=== PATIENT | female | born 1965 | race Caucasian/White ===

== ENCOUNTER → 2017-08-27 | Outpatient (CLI) | payer OTHER ==
--- NOTE | 2017-08-28 11:42 | MM ---
Reason for exam: screening (asymptomatic). Last mammogram was performed 1 year ago. History: Patient is postmenopausal. Family history of breast cancer in cousin and breast cancer in sister at age 56. Took hormonal contraceptives for 3 years beginning at age 45. Physical Findings: A clinical breast exam by your physician is recommended on an annual basis and results should be correlated with mammographic findings. MG Screening Mammo w CAD Bilateral CC and MLO view(s) were taken. Prior study comparison: August 19, 2016, bilateral MG 3d screening mammo w/cad. August 17, 2015, bilateral MG screening mammo w CAD. The breast tissue is heterogeneously dense. This may lower the sensitivity of mammography. Finding: There is equal architectural distortion located 4 cm from the nipple in the anterior position of the right breast seen on CC view. New finding since August 19, 2016, may be summation. ASSESSMENT: Incomplete: need additional imaging evaluation, BI-RAD 0 RECOMMENDATION: Special view mammogram of the right breast. If lesion persists on supplemental views, image directed ultrasound is recommended. [facility] will attempt to contact patient to return for supplemental views and ultrasound if indicated.
== END | disposition home or self-care (01) ==
LOC: RADMAMWWP 08:23
PROVIDERS: ATTEND Obstetrics & Gynecology
DX: Z08 Encounter for follow-up examination after completed treatment for malignant neoplasm (principal); Z80.3 Family history of malignant neoplasm of breast

== ENCOUNTER → 2017-09-01 | Outpatient (CLI) | payer OTHER ==
--- NOTE | 2017-09-01 14:49 | MM ---
Reason for exam: additional evaluation requested from abnormal screening. Last mammogram was performed less than 1 month ago. History: Patient is postmenopausal. Family history of breast cancer in cousin and breast cancer in sister at age 56. Took hormonal contraceptives for 3 years beginning at age 45. Physical Findings: Nurse did not find any significant physical abnormalities on exam. MG Work Up Mamm w CAD RT Spot compression CC and LM view(s) were taken of the right breast. Prior study comparison: August 27, 2017, bilateral MG screening mammo w CAD. August 19, 2016, bilateral MG 3d screening mammo w/cad. The breast tissue is heterogeneously dense. This may lower the sensitivity of mammography. Finding: Architectural distortion in the right breast does not persist on additional views as true lesion. These results were verbally communicated with the patient and result sheet given to the patient on 09/01/17. ASSESSMENT: Negative, BI-RAD 1 RECOMMENDATION: Return to routine screening mammogram schedule for both breasts.
== END | disposition home or self-care (01) ==
LOC: RADMAMWWP 14:02
PROVIDERS: ATTEND Obstetrics & Gynecology
DX: R92.8 Other abnormal and inconclusive findings on diagnostic imaging of breast (principal); Z80.3 Family history of malignant neoplasm of breast

== ENCOUNTER → 2017-11-16 | Outpatient (CLI) | payer OTHER ==
--- NOTE | 2017-11-16 10:35 | CT ---
EXAMINATION TYPE: CT sinus wo con DATE OF EXAM: 11/16/2017 COMPARISON: NONE HISTORY: Chronic sinusitis. Left-sided Hearing loss with vision changes and fluid in ears for months per patient. CT DLP: 655 mGycm. Automated Exposure Control for Dose Reduction was Utilized. TECHNIQUE: CT scan of the sinuses is performed without contrast, axial images are obtained, coronal r eformatted images are also reviewed. FINDINGS: There is suspicious dependent opacification inferior posterior right maxillary sinus. There is eccentric mucosal thickening or small polyp inferior anterior left sphenoid sinus axial image 25. Remainder paranasal sinuses are clear without suspicious opacification or air-fluid level. The ostio meatal complex is patent bilaterally on the coronal images. Visualized portion of mastoid air cells show no abnormal opacification. The globes are intact bilate rally. IMPRESSION: Probable mild acute right maxillary sinusitis. Correlate clinically.
== END | disposition home or self-care (01) ==
LOC: RADCTMAIN 09:21
PROVIDERS: ATTEND Family Medicine
DX: J32.9 Chronic sinusitis, unspecified (principal)
CPT/HCPCS: 70486

== ENCOUNTER 2018-01-10 16:36 | Emergency (ER) | payer OTHER ==
[2018-01-10 17:10] LABS: Basophils % (A) 1 %; Eosinophils # (A) 0.3 k/uL (0-0.7); Eosinophils % (A) 4 %; HCT 41.1 % (34.0-46.0); HGB 14.2 gm/dL (11.4-16.0); Lymphocytes # (A) 1.4 k/uL (1.0-4.8); Lymphocytes % (A) 17 %; MCH 29.7 pg (25.0-35.0); MCHC 34.4 g/dL (31.0-37.0); MCV 86.2 fL (80.0-100.0); Mean Platelet Volume 7.3; Monocytes # (A) 0.4 k/uL (0-1.0); Monocytes % (A) 5 %; Neutrophils # (A) 5.8 k/uL (1.3-7.7); Neutrophils % (A) 72 %; Platelet Count 273 k/uL (150-450); RBC 4.77 m/uL (3.80-5.40); RDW 12.4 % (11.5-15.5)
[2018-01-10 17:14] LABS: INR 0.9 (<1.2); Partial Thromboplastin Time 23.1 sec (22.0-30.0); Prothrombin Time 9.5 sec (9.0-12.0)
--- NOTE | 2018-01-10 17:14 | XR ---
EXAMINATION: XR chest 2V DATE AND TIME: 01/10/2018 5:09 PM ORDERING PROVIDER: Jones Kirkland DO CLINICAL INDICATION: Chest Pain TECHNIQUE: PA and lateral COMPARISON: None. DESCRIPTION: The lungs are clear. The pleural spaces are negative. The cardiac silhouette is not enlarged. The mediastinal and pleural silhouettes are unremarkable. The skeletal structures are intact without focal findings. The soft tissues are unremarkable. IMPRESSION: NO ACUTE PROCESS.
[2018-01-10 17:19] LABS: Albumin 3.9 g/dL (3.5-5.0); D-Dimer 0.4 mg/L FEU (<0.60); Magnesium 1.9 mg/dL (1.6-2.3); Potassium 4.3 mmol/L (3.5-5.1); Total Bilirubin 0.2 mg/dL (0.2-1.3); Total Protein 6.6 g/dL (6.3-8.2)
--- NOTE | 2018-01-10 17:19 | ED ---
General Adult HPI - General Chief complaint: Chest Pain Stated complaint: CP Time Seen by Provider: 01/10/18 16:46 Source: patient, RN notes reviewed, old records reviewed Mode of arrival: ambulatory Limitations: no limitations - History of Present Illness Initial comments: This is a 52-year-old female to the ER today for evaluation regards to chest pain. Patient had chest pain starting today. Never had prior similar pain. Patient does have PCO left, high blood pressure, borderline cholesterol and history of smoking. Patient's chest pain is left-sided radiating to her jaw and down her arm. No travel history no sick contacts no history of blood clots - Related Data Home Medications Medication Instructions Recorded Confirmed Lisinopril [Prinivil] 5 mg PO DAILY 03/19/15 01/10/18 Cholecalciferol [Vitamin D3] 2,000 unit PO DAILY 09/15/16 01/10/18 Fluticasone Nasal [place] [Flonase 2 spr EA NOSTRIL DAILY PRN 01/10/18 01/10/18 Nasal [place]] [place]-3 Fatty Acids/Fish Oil [Fish 2 cap PO DAILY 01/10/18 01/10/18 Oil 1,000 mg Softgel] Allergies Allergy/AdvReac Type Severity Reaction Status Date / Time No Known Allergies Allergy Verified 01/10/18 17:13 Review of Systems ROS Statement: Those systems with pertinent positive or pertinent negative responses have been documented in the HPI. ROS Other: All systems not noted in ROS Statement are negative. Past Medical History Past Medical History: Osteoarthritis (OA) Additional Past Medical History / Comment(s): POLYCYSTIC KIDNEY DISEASE. CHRONIC ABDOMINAL & LOWER BACK PAIN DUE TO PKD., STATES LISINOPRIL IS FOR KIDNEY PROTECTION. History of Any Multi-Drug Resistant Organisms: None Reported Past Surgical History: Hernia Repair, Uterine Ablation Additional Past Surgical History / Comment(s): KIDNEY CYSTS DRAINED., GLASS REMOVED FROM FINGER. Past Anesthesia/Blood Transfusion Reactions: No Reported Reaction Past Psychological History: Anxiety Smoking Status: Former smoker Past Alcohol Use History: Rare Past Drug Use History: None Reported - Past Family History Father Family Medical History: Cancer Additional Family Medical History / Comment(s): COLON CANCER Sister(s) Family Medical History: Cancer Additional Family Medical History / Comment(s): BREAST CANCER, POLYPS Brother(s) Family Medical History: Cancer Additional Family Medical History / Comment(s): TESTICULAR CANCER General Exam Limitations: no limitations General appearance: alert, in no apparent distress Head exam: Present: atraumatic, normocephalic, normal inspection Eye exam: Present: normal appearance, PERRL, EOMI. Absent: scleral icterus, conjunctival injection, periorbital swelling ENT exam: Present: normal exam, mucous membranes moist Neck exam: Present: normal inspection. Absent: tenderness, meningismus, lymphadenopathy Respiratory exam: Present: normal lung sounds bilaterally. Absent: respiratory distress, wheezes, rales, rhonchi, stridor Cardiovascular Exam: Present: regular rate, normal rhythm, normal heart sounds. Absent: systolic murmur, diastolic murmur, rubs, gallop, clicks GI/Abdominal exam: Present: soft, normal bowel sounds. Absent: distended, tenderness, guarding, rebound, rigid Extremities exam: Present: normal inspection, full ROM, normal capillary refill. Absent: tenderness, pedal edema, joint swelling, calf tenderness Back exam: Present: normal inspection Neurological exam: Present: alert, oriented X3, CN II-XII intact Psychiatric exam: Present: normal affect, normal mood Skin exam: Present: warm, dry, intact, normal color. Absent: rash Course Vital Signs 01/10/18 01/10/18 01/10/18 16:38 18:55 19:38 Temperature 98.6 F Pulse Rate 80 62 78 Respiratory 18 16 18 Rate Blood Pressure 125/75 155/80 155/80 O2 Sat by Pulse 98 99 99 Oximetry EKG Findings - EKG Comments: EKG Findings:: EKG shows normal sinus rhythm rate of 71, NC 136, QRS 88, QTC 445 Medical Decision Making - Lab Data Result diagrams: 01/10/18 16:54 01/10/18 16:54 Lab Results 01/10/18 01/10/18 01/10/18 Range/Units 16:54 16:54 16:54 WBC 8.0 (3.8-10.6) k/uL RBC 4.77 (3.80-5.40) m/uL Hgb 14.2 (11.4-16.0) gm/dL Hct 41.1 (34.0-46.0) % MCV 86.2 (80.0-100.0) fL MCH 29.7 (25.0-35.0) pg MCHC 34.4 (31.0-37.0) g/dL RDW 12.4 (11.5-15.5) % Plt Count 273 (150-450) k/uL Neutrophils % 72 % Lymphocytes % 17 % Monocytes % 5 % Eosinophils % 4 % Basophils % 1 % Neutrophils # 5.8 (1.3-7.7) k/uL Lymphocytes # 1.4 (1.0-4.8) k/uL Monocytes # 0.4 (0-1.0) k/uL Eosinophils # 0.3 (0-0.7) k/uL Basophils # 0.0 (0-0.2) k/uL PT (9.0-12.0) sec INR (<1.2) APTT (22.0-30.0) sec D-Dimer (<0.60) mg/L FEU Sodium 144 (137-145) mmol/L Potassium 4.3 (3.5-5.1) mmol/L Chloride 109 H (98-107) mmol/L Carbon Dioxide 24 (22-30) mmol/L Anion Gap 11 mmol/L BUN 31 H (7-17) mg/dL Creatinine 0.96 (0.52-1.04) mg/dL Est GFR (CKD-EPI)AfAm 79 (>60 ml/min/1.73 sqM) Est GFR (CKD-EPI)NonAf 68 (>60 ml/min/1.73 sqM) Glucose 128 H (74-99) mg/dL Calcium 9.0 (8.4-10.2) mg/dL Magnesium 1.9 (1.6-2.3) mg/dL Total Bilirubin 0.2 (0.2-1.3) mg/dL AST 17 (14-36) U/L ALT 31 (9-52) U/L Alkaline Phosphatase 74 (38-126) U/L Total Creatine Kinase 74 (30-135) U/L CK-MB (CK-2) 0.6 (0.0-2.4) ng/mL CK-MB (CK-2) Rel Index 0.8 Troponin I <0.012 (0.000-0.034) ng/mL NT-Pro-B Natriuret Pep pg/mL Total Protein 6.6 (6.3-8.2) g/dL Albumin 3.9 (3.5-5.0) g/dL Lipase 325 H (23-300) U/L 01/10/18 01/10/18 Range/Units 16:54 16:54 WBC (3.8-10.6) k/uL RBC (3.80-5.40) m/uL Hgb (11.4-16.0) gm/dL Hct (34.0-46.0) % MCV (80.0-100.0) fL MCH (25.0-35.0) pg MCHC (31.0-37.0) g/dL RDW (11.5-15.5) % Plt Count (150-450) k/uL Neutrophils % % Lymphocytes % % Monocytes % % Eosinophils % % Basophils % % Neutrophils # (1.3-7.7) k/uL Lymphocytes # (1.0-4.8) k/uL Monocytes # (0-1.0) k/uL Eosinophils # (0-0.7) k/uL Basophils # (0-0.2) k/uL PT 9.5 (9.0-12.0) sec INR 0.9 (<1.2) APTT 23.1 (22.0-30.0) sec D-Dimer 0.40 (<0.60) mg/L FEU Sodium (137-145) mmol/L Potassium (3.5-5.1) mmol/L Chloride (98-107) mmol/L Carbon Dioxide (22-30) mmol/L Anion Gap mmol/L BUN (7-17) mg/dL Creatinine (0.52-1.04) mg/dL Est GFR (CKD-EPI)AfAm (>60 ml/min/1.73 sqM) Est GFR (CKD-EPI)NonAf (>60 ml/min/1.73 sqM) Glucose (74-99) mg/dL Calcium (8.4-10.2) mg/dL Magnesium (1.6-2.3) mg/dL Total Bilirubin (0.2-1.3) mg/dL AST (14-36) U/L ALT (9-52) U/L Alkaline Phosphatase (38-126) U/L Total Creatine Kinase (30-135) U/L CK-MB (CK-2) (0.0-2.4) ng/mL CK-MB (CK-2) Rel Index Troponin I (0.000-0.034) ng/mL NT-Pro-B Natriuret Pep 33 pg/mL Total Protein (6.3-8.2) g/dL Albumin (3.5-5.0) g/dL Lipase (23-300) U/L Disposition Clinical Impression: Chest pain Disposition: HOME SELF-CARE Condition: Good Instructions: Chest Pain (ED) Referrals: Braydon Warner DO [Primary Care Provider] - 1-2 days
[2018-01-10 17:25] LABS: Creatine Kinase 74 U/L (30-135)
[2018-01-10] MEDS ORDERED: RX INFO: IV CONTRAST WAS GIVEN 1 EACH MISC MISCELLANE PRN (17:37)
[2018-01-10 17:38] LABS: Creatine Kinase MB 0.6 ng/mL (0.0-2.4); Troponin I <0.012 ng/mL (0.000-0.034)
[2018-01-10] MEDS ORDERED: MAG HYDROX/AL HYDROX/SIMETH 30 ML, HYOSCYAMINE ELIXIR 10 ML, CIMETIDINE HCL 300 MG PO STA ×3 (17:46)
--- NOTE | 2018-01-10 19:09 | CT ---
EXAMINATION TYPE: CT angio chest DATE OF EXAM: 01/10/2018 6:58 PM COMPARISON: NONE HISTORY: Chest pain, not feeling well CT DLP: 464.6 mGycm Automated exposure control for dose reduction was used. CONTRAST: CTA scan of the thorax is performed with IV Contrast, patient injected with 100 mL of Omnipaque 350, pulmonary embolism protocol. . FINDINGS: LUNGS: The lungs are grossly clear, there is no concerning parenchymal mass or nodule identified. T here is no pleural effusion or pneumothorax seen. The tracheobronchial tree is patent. MEDIASTINUM: There is satisfactory enhancement of the pulmonary artery and its branches, there is no CT evidence for pulmonary embolism. There are no greater than 1 cm hilar or mediastinal lymph nodes. The aorta is unremarkable as seen. There is no cardiomegaly. No pericardial effusion. OTHER: The kidneys are both hypertrophied and there are innumerable cysts within both kidneys. Innum erable simple appearing hepatic cysts are also seen IMPRESSION: 1. NEGATIVE FOR PULMONARY EMBOLISM. NO ACUTE PROCESS. 2. INCIDENTAL FINDINGS OF APKD.
[2018-01-10 19:40] VITALS: PULSE 78
[2018-01-10 21:19] VITALS: BP 137/68; RESP 20; TEMP 98.1
== END 2018-01-10 21:19 | disposition home or self-care (01) ==
LOC: EC 16:36
DX: R07.9 Chest pain, unspecified (principal); R03.0 Elevated blood-pressure reading, without diagnosis of hypertension; E28.2 Polycystic ovarian syndrome; Q61.3 Polycystic kidney, unspecified; Z87.891 Personal history of nicotine dependence
CPT/HCPCS: 36415; 93005; 85379; 83880; 80053; 82550; 82553; 83690; 83735; 84484; 85025; 85610; 85730; 71046; 71275; 99285; Q9967

== ENCOUNTER → 2018-01-28 | Outpatient (CLI) | payer OTHER | END | disposition home or self-care (01) | LOC: RADMRIMAIN 07:48 | PROVIDERS: ATTEND Internal Medicine Nephrology | DX: Z53.9 Procedure and treatment not carried out, unspecified reason (principal) ==

== ENCOUNTER → 2018-09-17 | Outpatient (CLI) | payer OTHER ==
--- NOTE | 2018-09-17 11:19 | BD ---
EXAMINATION TYPE: Axial Bone Density DATE OF EXAM: 09/17/2018 COMPARISON: NONE CLINICAL HISTORY: Height: 63 Weight: 196.3 FRAX RISK QUESTIONS: Alcohol (3 or more units per day): no Family History (Parent hip fracture): yes Glucocorticoids (More than 3mos): no (Ex: prednisone, prednisolone, methylprednisolone, dexamethasone, and hydrocortisone). History of Fracture in Adulthood: no Secondary Osteoporosis: 1. Type 1 Diabetes: no 2. Hyperthyroidism: no 3. Menopause before 45: no 4. Malnutrition: no 5. Chronic liver disease: no Rheumatoid Arthritis: no Current Tobacco Use: no RISK FACTORS HISTORY OF: Family History of Osteoporosis: yes Active: yes Diet low in dairy products/other sources of calcium: yes Postmenopausal woman: unsure- had an ablation 5 years ago Lost more than 2 inches in height since high school: no MEDICATIONS: hydrocodone, lisinopril, fish oil, vit d Additional History: pt has polycystic kidney disease EXAM MEASUREMENTS: Bone mineral densitometry was performed using the [employer]. Bone mineral density as measured about the Lumbar spine is: ----- L1-L4(G/cm2): 1.008 T Score Values are as follows: ----- L2: -1.4 ----- L3: -0.6 ----- L4: -1.0 ----- L1-L4: -1.4 Bone mineral density : baseline Bone mineral density about the R hip (g/cm2): 1.090 Bone mineral density about the L hip (g/cm2): 1.088 T Score values are as follows: -----R Neck: 0.4 -----L Neck: 0.4 -----R Total: 0.7 -----L Total: 1.1 Bone mineral density : baseline IMPRESSION: Osteopenia about the lumbar spine. NOTE: T-SCORE=SD OF THE YOUNG ADULT MEAN.
--- NOTE | 2018-09-20 11:47 | MM ---
Reason for exam: screening (asymptomatic). Last mammogram was performed 1 year and 1 month ago. History: Patient is postmenopausal. Family history of breast cancer in cousin and breast cancer in sister at age 56. Took hormonal contraceptives for 3 years beginning at age 45. Physical Findings: A clinical breast exam by your physician is recommended on an annual basis and results should be correlated with mammographic findings. MG Screening Mammo w CAD Bilateral CC and MLO view(s) were taken. Prior study comparison: September 01, 2017, right breast MG work up mamm w CAD RT. August 27, 2017, bilateral MG screening mammo w CAD. The breast tissue is heterogeneously dense. This may lower the sensitivity of mammography. No significant changes when compared with prior studies. ASSESSMENT: Benign, BI-RAD 2 RECOMMENDATION: Routine screening mammogram of both breasts in 1 year.
== END ==
LOC: RADMAMWWP 09:28
PROVIDERS: ATTEND Obstetrics & Gynecology
DX: Z12.31 Encounter for screening mammogram for malignant neoplasm of breast (principal); Z80.3 Family history of malignant neoplasm of breast; M85.88 Other specified disorders of bone density and structure, other site
CPT/HCPCS: 77067; 77080

== ENCOUNTER 2019-09-09 20:50 | Inpatient (IN) | payer OTHER ==
[2019-09-09] MEDS ORDERED: SODIUM CHLORIDE 0.9% 1,000 ML IV STA ×2 (21:11→22:04)
[2019-09-09] MEDS ORDERED: MORPHINE SULFATE 4 MG/ML SYRINGE IV STA (21:11)
[2019-09-09 21:33] LABS: Albumin 4.2 g/dL (3.5-5.0); Calcium 9.4 mg/dL (8.4-10.2); Potassium 4.5 mmol/L (3.5-5.1); Total Protein 7.2 g/dL (6.3-8.2)
[2019-09-09 21:34] LABS: Basophils % (A) 0 %; Eosinophils # (A) 0.1 k/uL (0-0.7); Eosinophils % (A) 1 %; HCT 39.4 % (34.0-46.0); HGB 13.1 gm/dL (11.4-16.0); Lymphocytes # (A) 0.9 k/uL (1.0-4.8); Lymphocytes % (A) 5 %; MCH 30.3 pg (25.0-35.0); MCHC 33.3 g/dL (31.0-37.0); Monocytes # (A) 0.5 k/uL (0-1.0); Monocytes % (A) 3 %; Neutrophils # (A) 14.8 k/uL (1.3-7.7); Neutrophils % (A) 90 %; Platelet Count 236 k/uL (150-450); RBC 4.33 m/uL (3.80-5.40); RDW 12.3 % (11.5-15.5); WBC 16.4 k/uL (3.8-10.6)
--- NOTE | 2019-09-09 22:04 | CT ---
EXAMINATION TYPE: CT abdomen pelvis wo con DATE OF EXAM: 09/09/2019 COMPARISON: 03/19/2015 HISTORY: flank pain, hx of stones and polycystic kidney disease CT DLP: 887.6 mGycm Automated exposure control for dose reduction was used. TECHNIQUE: Helical acquisition of images was performed from the lung bases through the pelvis. FINDINGS: Within the limitations of noncontrast CT the following observations are made: LUNG BASES: No significant abnormality is appreciated. LIVER/GB: No significant abnormality is appreciated. Atelectasis are redemonstrated. PANCREAS: No significant abnormality is seen. SPLEEN: No significant abnormality is seen. ADRENALS: No significant abnormality is seen. KIDNEYS: Bilaterally enlarged polycystic kidneys appear similar to the prior study. No evidence of ac darius process. PERITONEAL CAVITY: No free air is visualized. No fluid. RETROPERITONEAL ADENOPATHY: None visualized REPRODUCTIVE ORGANS: No significant abnormality is seen URINARY BLADDER: No significant abnormality is seen. PELVIC ADENOPATHY: None visualized. OSSEOUS STRUCTURES: No significant abnormality is seen. BOWEL: No significant abnormality is seen. IMPRESSION: NO ACUTE PROCESS.
--- NOTE | 2019-09-09 22:08 | ED ---
General Adult HPI - General Chief complaint: Back Pain/Injury Stated complaint: Kidney infection Time Seen by Provider: 09/09/19 20:57 Source: patient, RN notes reviewed, old records reviewed Mode of arrival: ambulatory Limitations: no limitations - History of Present Illness Initial comments: 54-year-old female patient past history Ceftin for lysis take kidney disease presents ED chief complaint right flank pain. Patient was has been ongoing for approximately 3 days. Patient feels that she has a urinary tract infection. Patient reports that she has a mild amount pain with urination, reports the urine has changed color. Reports some subjective fevers and chills at home, fatigue. Denies any other complaints. Systemic: Pt denies fatigue, fever/chills, rash. Pt denies weakness, night sweats, weight loss. Neuro: Pt denies headache, visual disturbances, syncope or pre-syncope. HEENT: Pt denies ocular discharge or irritation, otalgia, rhinorrhea, pharyngitis or notable lymphadenopathy. Cardiopulmonary: Pt denies chest pain, SOB, heart palpitations, dyspnea on exertion. Abdominal/GI: Pt denies abdominal pain, n/v/d. : Pt denies dysuria, burning w/ urination, frequency/urgency. Denies new onset urinary or bowel incontinence. MSK: Pt denies myalgia, loss of strength or function in extremities. Neuro: Pt denies new onset weakness, paresthesias. - Related Data Home Medications Medication Instructions Recorded Confirmed Lisinopril [Prinivil] 5 mg PO DAILY 03/19/15 01/10/18 Cholecalciferol [Vitamin D3] 2,000 unit PO DAILY 09/15/16 01/10/18 Fluticasone Nasal [place] [Flonase 2 spr EA NOSTRIL DAILY PRN 01/10/18 01/10/18 Nasal Combs] [place]-3 Fatty Acids/Fish Oil [Fish 2 cap PO DAILY 01/10/18 01/10/18 Oil 1,000 mg Softgel] Allergies Allergy/AdvReac Type Severity Reaction Status Date / Time No Known Allergies Allergy Verified 09/09/19 20:53 Review of Systems ROS Statement: Those systems with pertinent positive or pertinent negative responses have been documented in the HPI. ROS Other: All systems not noted in ROS Statement are negative. Past Medical History Past Medical History: Osteoarthritis (OA) Additional Past Medical History / Comment(s): POLYCYSTIC KIDNEY DISEASE. RONIC ABDOMINAL & LOWER BACK PAIN DUE TO PKD., STATES LISINOPRIL IS FOR KIDNEY PROTECTION. History of Any Multi-Drug Resistant Organisms: None Reported Past Surgical History: Hernia Repair, Uterine Ablation Additional Past Surgical History / Comment(s): KIDNEY CYSTS DRAINED., GLASS REMOVED FROM FINGER. Past Anesthesia/Blood Transfusion Reactions: No Reported Reaction Past Psychological History: Anxiety Smoking Status: Former smoker Past Alcohol Use History: Rare Past Drug Use History: None Reported - Past Family History Father Family Medical History: Cancer Additional Family Medical History / Comment(s): COLON CANCER Sister(s) Family Medical History: Cancer Additional Family Medical History / Comment(s): BREAST CANCER, POLYPS Brother(s) Family Medical History: Cancer Additional Family Medical History / Comment(s): TESTICULAR CANCER General Exam - General Exam Comments Initial Comments: Constitutional: NAD, AOX3, Pt has pleasant affect. HEENT: NC/AT, trachea midline, neck supple, no lymphadenopathy. Posterior phar ynx non erythematous, without exudates. External ears appear normal, without discharge. Mucous membranes moist. Eyes PERRLA, EOM intact. There is no scleral icterus. No pallor noted. Cardiopulmonary: RRR, no murmurs, rubs or gallops, no JVD noted. Lungs CTAB in anterior and posterior monroy. No peripheral edema. Abdominal exam: Abdomen soft and non-distended. Abdomen mildly tender to palpation in right lower quadrant region. Right CVA tenderness positive. Left CVA tenderness negative. No ecchymoses, no guarding or rigidity, no other areas of abdominal tenderness.. Bowel sounds active in LLQ. No hepatosplenomegaly. No ecchymosis Neuro: CN II-XII grossly intact. No nuchal rigidity. No raccon eyes, no edwards sign, no hemotympanum. No cervical spinal tenderness. MSK: No posterior calf tenderness bilaterally, homans sign negative bilaterally. Posterior tibialis and radial pulse +2 bilaterally. Sensation intact in upper and lower extremities. Full active ROM in upper and lower extremities, 5/5 stregnth. Limitations: no limitations Course Vital Signs 09/09/19 20:51 Temperature 99.0 F Pulse Rate 86 Respiratory 18 Rate Blood Pressure 101/61 O2 Sat by Pulse 98 Oximetry Medical Decision Making - Medical Decision Making 54-year-old female patient past history Ceftin for lysis take kidney disease presents ED chief complaint right flank pain. Patient was has been ongoing for approximately 3 days. Patient feels that she has a urinary tract infection. Patient reports that she has a mild amount pain with urination, reports the urine has changed color. Reports some subjective fevers and chills at home, fatigue. Denies any other complaints. Patient vital signs stable, afebrile. Physical exam. Right CVA tenderness positive left CVA tenderness negative. Investigations revealed leukocytosis of 16, mild HPI 1.7. Patient reports that he has not been drinking many fluids. Lactic acid 1.1. UA positive for urinary tract infection. CT negative for acute process. Patient offered admission to hospital. Patient will be admitted for polynephritis/acute kidney injury. Patient is to 2 g Rocephin, 2 L fluid. Will be admitted to Dr. Krause. Case discussed with Dr. Kirkland. - Lab Data Result diagrams: 09/09/19 21:12 09/09/19 21:12 Lab Results 09/09/19 09/09/19 09/09/19 Range/Units 21:12 21:12 21:45 WBC 16.4 H (3.8-10.6) k/uL RBC 4.33 (3.80-5.40) m/uL Hgb 13.1 (11.4-16.0) gm/dL Hct 39.4 (34.0-46.0) % MCV 91.0 (80.0-100.0) fL MCH 30.3 (25.0-35.0) pg MCHC 33.3 (31.0-37.0) g/dL RDW 12.3 (11.5-15.5) % Plt Count 236 (150-450) k/uL Neutrophils % 90 % Lymphocytes % 5 % Monocytes % 3 % Eosinophils % 1 % Basophils % 0 % Neutrophils # 14.8 H (1.3-7.7) k/uL Lymphocytes # 0.9 L (1.0-4.8) k/uL Monocytes # 0.5 (0-1.0) k/uL Eosinophils # 0.1 (0-0.7) k/uL Basophils # 0.0 (0-0.2) k/uL Sodium 137 (137-145) mmol/L Potassium 4.5 (3.5-5.1) mmol/L Chloride 104 (98-107) mmol/L Carbon Dioxide 22 (22-30) mmol/L Anion Gap 11 mmol/L BUN 32 H (7-17) mg/dL Creatinine 1.73 H (0.52-1.04) mg/dL Est GFR (CKD-EPI)AfAm 38 (>60 ml/min/1.73 sqM) Est GFR (CKD-EPI)NonAf 33 (>60 ml/min/1.73 sqM) Glucose 115 H (74-99) mg/dL Plasma Lactic Acid Enoc 1.1 (0.7-2.0) mmol/L Calcium 9.4 (8.4-10.2) mg/dL Total Bilirubin 1.0 (0.2-1.3) mg/dL AST 34 (14-36) U/L ALT 46 (9-52) U/L Alkaline Phosphatase 79 (38-126) U/L Total Protein 7.2 (6.3-8.2) g/dL Albumin 4.2 (3.5-5.0) g/dL Lipase 36 (23-300) U/L Urine Color Urine Appearance (Clear) Urine pH (5.0-8.0) Ur Specific [place] (1.001-1.035) Urine Protein (Negative) Urine Glucose (UA) (Negative) Urine Ketones (Negative) Urine Blood (Negative) Urine Nitrite (Negative) Urine Bilirubin (Negative) Urine Urobilinogen (<2.0) mg/dL Ur Leukocyte Esterase (Negative) Urine RBC (0-5) /hpf Urine WBC (0-5) /hpf Urine WBC Clumps (None) /hpf Ur Squamous Epith Cells (0-4) /hpf Urine Bacteria (None) /hpf Urine Mucus (None) /hpf Urine HCG, Qual (Not Detectd) 09/09/19 09/09/19 Range/Units 22:11 22:11 WBC (3.8-10.6) k/uL RBC (3.80-5.40) m/uL Hgb (11.4-16.0) gm/dL Hct (34.0-46.0) % MCV (80.0-100.0) fL MCH (25.0-35.0) pg MCHC (31.0-37.0) g/dL RDW (11.5-15.5) % Plt Count (150-450) k/uL Neutrophils % % Lymphocytes % % Monocytes % % Eosinophils % % Basophils % % Neutrophils # (1.3-7.7) k/uL Lymphocytes # (1.0-4.8) k/uL Monocytes # (0-1.0) k/uL Eosinophils # (0-0.7) k/uL Basophils # (0-0.2) k/uL Sodium (137-145) mmol/L Potassium (3.5-5.1) mmol/L Chloride (98-107) mmol/L Carbon Dioxide (22-30) mmol/L Anion Gap mmol/L BUN (7-17) mg/dL Creatinine (0.52-1.04) mg/dL Est GFR (CKD-EPI)AfAm (>60 ml/min/1.73 sqM) Est GFR (CKD-EPI)NonAf (>60 ml/min/1.73 sqM) Glucose (74-99) mg/dL Plasma Lactic Acid Enoc (0.7-2.0) mmol/L Calcium (8.4-10.2) mg/dL Total Bilirubin (0.2-1.3) mg/dL AST (14-36) U/L ALT (9-52) U/L Alkaline Phosphatase (38-126) U/L Total Protein (6.3-8.2) g/dL Albumin (3.5-5.0) g/dL Lipase (23-300) U/L Urine Color Yellow Urine Appearance Turbid H (Clear) Urine pH 5.5 (5.0-8.0) Ur Specific [place] 1.016 (1.001-1.035) Urine Protein 2+ H (Negative) Urine Glucose (UA) Negative (Negative) Urine Ketones Negative (Negative) Urine Blood Large H (Negative) Urine Nitrite Positive H (Negative) Urine Bilirubin Negative (Negative) Urine Urobilinogen <2.0 (<2.0) mg/dL Ur Leukocyte Esterase Large H (Negative) Urine RBC >182 H (0-5) /hpf Urine WBC >182 H (0-5) /hpf Urine WBC Clumps Many H (None) /hpf Ur Squamous Epith Cells 1 (0-4) /hpf Urine Bacteria Few H (None) /hpf Urine Mucus Many H (None) /hpf Urine HCG, Qual Not Detected (Not Detectd) Disposition Clinical Impression: Pyelonephritis, CHANDU (acute kidney injury) Disposition: ADMITTED IP TO THIS HOSP Condition: Serious Is patient prescribed a controlled substance at d/c from ED?: No Referrals: Braydon Warner DO [Primary Care Provider] - 1-2 days
[2019-09-09 22:29] LABS: Appearance,Urine Turbid (Clear); Bacteria,Urine Few /hpf; Bilirubin,Urine Negative (Negative); Blood,Urine Large (Negative); Color,Urine Yellow; Glucose,Urine (UA) Negative (Negative); Ketones,Urine Negative (Negative); Leukocyte Esterase,Urine Large (Negative); Mucus,Urine Many /hpf; Nitrite,Urine Positive (Negative); PH, Urine 5.5 (5.0-8.0); Protein,Urine 2+ (Negative); RBC,Urine >182 /hpf (0-5); Specific Gravity,Urine 1.016 (1.001-1.035); Squamous Epithelial Cell,Urine 1 /hpf (0-4); Urobilinogen,Urine <2.0 mg/dL (<2.0); WBC,Urine >182 /hpf (0-5)
[2019-09-09] MEDS ORDERED: NALOXONE 0.4 MG/ML 1 ML VIAL IV PRN (22:46)
[2019-09-09] MEDS: SODIUM CHLORIDE 0.9% 1,000 ML IV SCH (23:07)
[2019-09-10] VITALS: BMI 35.5
[2019-09-10] MEDS: MORPHINE SULFATE 2 MG/ML SYRINGE IVP PRN ×4 (04:12→20:21)
[2019-09-10 07:40] LABS: Basophils % (A) 0 %; Eosinophils % (A) 0 %; HCT 36.9 % (34.0-46.0); HGB 12.2 gm/dL (11.4-16.0); Lymphocytes % (A) 7 %; MCH 30.7 pg (25.0-35.0); MCHC 33.2 g/dL (31.0-37.0); MCV 92.5 fL (80.0-100.0); Mean Platelet Volume 6.6; Monocytes % (A) 4 %; Neutrophils % (A) 88 %; Platelet Count 175 k/uL (150-450); RBC 3.99 m/uL (3.80-5.40); RDW 12.1 % (11.5-15.5); WBC 12.5 k/uL (3.8-10.6)
[2019-09-10 07:41] LABS: Lymphocytes # (A) 0.9 k/uL (1.0-4.8); Monocytes # (A) 0.5 k/uL (0-1.0)
[2019-09-10 07:54] LABS: Calcium 8.2 mg/dL (8.4-10.2); Potassium 4.2 mmol/L (3.5-5.1)
[2019-09-10] MEDS ORDERED: traMADol 50 MG TAB PO PRN (08:35)
[2019-09-10] MEDS: SODIUM CHLORIDE 0.9% 1,000 ML IV SCH ×2 (09:43→20:25)
--- NOTE | 2019-09-10 22:18 | P.HPIM ---
History of Present Illness H&P Date: 09/10/19 Chief Complaint: Right flank pain Patient is a 54-year-old female with a known history of osteoarthritis, polycystic kidney disease and chronic low back pain came to ER with complaints of right flank pain. Patient has been having right flank pain for the past 3 days and radiating down the right groin. Patient does have history of pyelonephritis in the past and felt like urinary infection as per patient.. Patient was also complaining of discomfort with urination. Does have subjective fever and chills and generalized weakness and fatigue. No nausea vomiting or diarrhea. Denied any recent illnesses. No recent travel. No chest pain or shortness of breath. No headache or dizziness or lightheadedness. CT abdomen and pelvis showed no acute process. Patient does have leukocytosis with WBC count 16 BUN 32 and creatinine 1.70 Urinalysis showed Large leukocyte esterase with greater than 182 WBC s. Review of Systems Constitutional: Does have subjective fevers and chills and generalized weakness and fatigue Abdomen: Patient denied nausea vomiting and diarrhea and abdominal pain. Right flank pain and groin pain Cardiovascular: Patient denies any chest pain or short of breath no palpitations. Respiratory: patient denied any cough is from production. No shortness of breath Neurologic: Patient denied any numbness or tingling headache. Musculoskeletal: Patient denies any complaints of joint swelling or deformity. Skin: Negative Psychiatric: Negative Endocrine: No heat or cold intolerance. No recent weight gain. Genitourinary: No dysuria or hematuria. All other 14 point ROS negative except the above Past Medical History Past Medical History: Osteoarthritis (OA) Additional Past Medical History / Comment(s): POLYCYSTIC KIDNEY DISEASE. CHRONIC ABDOMINAL & LOWER BACK PAIN DUE TO PKD., STATES LISINOPRIL IS FOR KIDNEY PROTECTION. right plantar fascitis right foot. claustrophobic History of Any Multi-Drug Resistant Organisms: None Reported Past Surgical History: Hernia Repair, Uterine Ablation Additional Past Surgical History / Comment(s): KIDNEY CYSTS DRAINED., GLASS REMOVED FROM FINGER. Past Anesthesia/Blood Transfusion Reactions: No Reported Reaction Past Psychological History: No Psychological Hx Reported Smoking Status: Former smoker Past Alcohol Use History: Rare Additional Past Alcohol Use History / Comment(s): QUIT SMOKING 3 YEARS AGO. SMOKED 5-6 CIGARETTES PER DAY. SMOKED APPROX 28 YEARS. Past Drug Use History: None Reported - Past Family History Father Family Medical History: Cancer Additional Family Medical History / Comment(s): COLON CANCER Sister(s) Family Medical History: Cancer Additional Family Medical History / Comment(s): BREAST CANCER, POLYPS Brother(s) Family Medical History: Cancer Additional Family Medical History / Comment(s): TESTICULAR CANCER Medications and Allergies Home Medications Medication Instructions Recorded Confirmed Type Lisinopril [Prinivil] 5 mg PO DAILY 03/19/15 09/09/19 History Cholecalciferol [Vitamin D3] 2,000 unit PO DAILY 09/15/16 09/09/19 History Fluticasone Nasal [place] [Flonase 2 spr EA NOSTRIL DAILY PRN 01/10/18 09/09/19 History Nasal [place]] [place]-3 Fatty Acids/Fish Oil [Fish 1 cap PO DAILY 01/10/18 09/09/19 History Oil 1,000 mg Softgel] HYDROcodone/APAP 7.5-325MG [[place] 1 tab PO TID PRN 09/09/19 09/09/19 History 7.5-325] Allergies Allergy/AdvReac Type Severity Reaction Status Date / Time No Known Allergies Allergy Verified 09/09/19 23:20 Physical Exam Vitals: Vital Signs Temp Pulse Pulse Resp BP BP Pulse Ox 09/10/19 10:30 16 09/10/19 05:39 99.0 F 96 16 99/63 94 L 09/09/19 23:35 97.7 F 67 14 101/66 97 09/09/19 23:00 98.8 F 100 20 116/86 97 09/09/19 22:39 98.9 F 102 H 20 114/54 99 09/09/19 20:51 99.0 F 86 18 101/61 98 Intake and Output 09/09/19 09/10/19 09/10/19 22:59 06:59 14:59 Intake Total 400 Balance 400 Intake: Intake, IV Titration 400 Amount Sodium Chloride 0.9% 1, 400 000 ml @ 100 mls/hr IV . Q10H [facility] Rx#:[id number] Other: Voiding Method Toilet Toilet # Voids 2 2 # Bowel Movements 0 Weight 90.718 kg Results CBC & Chem 7: 09/10/19 07:22 09/10/19 07:22 Labs: Abnormal Lab Results - Last 24 Hours (Table) 09/09/19 09/09/19 09/09/19 Range/Units 21:12 21:12 22:11 WBC 16.4 H (3.8-10.6) k/uL Neutrophils # 14.8 H (1.3-7.7) k/uL Lymphocytes # 0.9 L (1.0-4.8) k/uL Chloride (98-107) mmol/L Carbon Dioxide (22-30) mmol/L BUN 32 H (7-17) mg/dL Creatinine 1.73 H (0.52-1.04) mg/dL Glucose 115 H (74-99) mg/dL Calcium (8.4-10.2) mg/dL Urine Appearance Turbid H (Clear) Urine Protein 2+ H (Negative) Urine Blood Large H (Negative) Urine Nitrite Positive H (Negative) Ur Leukocyte Esterase Large H (Negative) Urine RBC >182 H (0-5) /hpf Urine WBC >182 H (0-5) /hpf Urine WBC Clumps Many H (None) /hpf Urine Bacteria Few H (None) /hpf Urine Mucus Many H (None) /hpf 09/10/19 09/10/19 Range/Units 07:22 07:22 WBC 12.5 H (3.8-10.6) k/uL Neutrophils # 11.0 H (1.3-7.7) k/uL Lymphocytes # 0.9 L (1.0-4.8) k/uL Chloride 110 H (98-107) mmol/L Carbon Dioxide 19 L (22-30) mmol/L BUN 26 H (7-17) mg/dL Creatinine 1.35 H (0.52-1.04) mg/dL Glucose (74-99) mg/dL Calcium 8.2 L (8.4-10.2) mg/dL Urine Appearance (Clear) Urine Protein (Negative) Urine Blood (Negative) Urine Nitrite (Negative) Ur Leukocyte Esterase (Negative) Urine RBC (0-5) /hpf Urine WBC (0-5) /hpf Urine WBC Clumps (None) /hpf Urine Bacteria (None) /hpf Urine Mucus (None) /hpf Microbiology - Last 24 Hours (Table) 09/09/19 22:11 Urine Culture - Preliminary Urine,Voided Thrombosis Risk Factor Assmnt - DVT/VTE Prophylaxis DVT/VTE Prophylaxis: Pharmacologic Prophylaxis ordered - Choose All That Apply Any of the Below Risk Factors Present?: Yes Each Factor Represents 1 point: Age 41-60 years, Obesity (BMI >25) Other Risk Factors: No Other congenital or acquired thrombophilia - If yes, enter type in comment: No Thrombosis Risk Factor Assessment Total Risk Factor Score: 2 Thrombosis Risk Factor Assessment Level: Low Risk Assessment and Plan Assessment: Acute pyelonephritis. Patient presents with right flank pain and discomfort in urination. Sepsis secondary to above History of polycystic kidney disease Osteoarthritis Generalized weakness and tiredness Previous history of smoking DVT prophylaxis Plan: Patient will be continued on IV hydration and antibiotics in the form of ceftriaxone. Follow up blood cultures and urine cultures. Continue with symptomatic management and supportive care. Further recommendations based on the clinical course. Time with Patient: Greater than 30
[2019-09-10] MEDS: HEPARIN SODIUM,PORCINE 5,000 UNIT/ML 1 ML VIAL SQ SCH (23:09)
[2019-09-11] MEDS: MORPHINE SULFATE 2 MG/ML SYRINGE IVP PRN ×5 (01:16→21:01)
[2019-09-11] MEDS: SODIUM CHLORIDE 0.9% 1,000 ML IV SCH ×2 (04:45→16:28)
[2019-09-11] MEDS: HEPARIN SODIUM,PORCINE 5,000 UNIT/ML 1 ML VIAL SQ SCH ×3 (07:16→23:53)
[2019-09-11 08:51] LABS: Basophils # (A) 0.1 k/uL (0-0.2); Basophils % (A) 1 %; Eosinophils % (A) 0 %; HCT 35.9 % (34.0-46.0); HGB 11.7 gm/dL (11.4-16.0); Lymphocytes # (A) 0.6 k/uL (1.0-4.8); Lymphocytes % (A) 9 %; MCH 29.6 pg (25.0-35.0); MCHC 32.5 g/dL (31.0-37.0); MCV 91.3 fL (80.0-100.0); Mean Platelet Volume 7.9; Monocytes # (A) 0.4 k/uL (0-1.0); Monocytes % (A) 6 %; Neutrophils # (A) 5.6 k/uL (1.3-7.7); Neutrophils % (A) 82 %; Platelet Count 160 k/uL (150-450); RBC 3.93 m/uL (3.80-5.40); RDW 12.2 % (11.5-15.5); WBC 6.8 k/uL (3.8-10.6)
[2019-09-11 09:11] LABS: Calcium 8.2 mg/dL (8.4-10.2)
[2019-09-11] MEDS ORDERED: PANTOPRAZOLE 40 MG TABLET PO STA (12:49)
--- NOTE | 2019-09-11 23:24 | P.PN ---
Subjective Progress Note Date: 09/11/19 Principal diagnosis: Acute pyelonephritis Acute kidney injury likely prerenal Patient is a 54-year-old female with a known history of osteoarthritis, polycystic kidney disease and chronic low back pain came to ER with complaints of right flank pain. Patient has been having right flank pain for the past 3 days and radiating down the right groin. Patient does have history of p yelonephritis in the past and felt like urinary infection as per patient.. Patient was also complaining of discomfort with urination. Does have subjective fever and chills and generalized weakness and fatigue. No nausea vomiting or diarrhea. Denied any recent illnesses. No recent travel. No chest pain or shortness of breath. No headache or dizziness or lightheadedness. CT abdomen and pelvis showed no acute process. Patient does have leukocytosis with WBC count 16 BUN 32 and creatinine 1.70 Urinalysis showed Large leukocyte esterase with greater than 182 WBC s. 09/11/2019 Patient says that her right flank pain is much improved today. Able to tolerate diet. Generalized weakness is also improved. Leukocytosis is resolved. Urine culture is growing gram-negative bacilli. Final culture report is pending. Patient is being continued on IV hydration. Patient was febrile this morning. Patient is being continued on ceftriaxone. Renal function is much improved. Active Medications Heparin Sodium (Porcine) (Heparin) 5,000 unit SQ Q8HR [facility] Last Admin: 09/11/19 16:29 Dose: 5,000 unit Documented by: Sodium Chloride (Saline 0.9%) 1,000 mls @ 100 mls/hr IV .Q10H [facility] Last Admin: 09/11/19 16:28 Dose: 100 mls/hr Documented by: Ceftriaxone Sodium 1 gm/ (Sodium Chloride) 50 mls @ 100 mls/hr IVPB Q12HR [facility] Last Admin: 09/11/19 20:08 Dose: 100 mls/hr Documented by: Morphine Sulfate (Morphine Sulfate (Inj)) 2 mg IVP Q4H PRN PRN Reason: Severe Pain/Discomfort Last Admin: 09/11/19 21:01 Dose: 2 mg Documented by: Naloxone HCl (Narcan) 0.2 mg IV Q2M PRN PRN Reason: Opioid Reversal Pantoprazole Sodium (Protonix) 40 mg PO AC-BRKFST [facility] Phenazopyridine HCl (Pyridium) 100 mg PO TID [facility] Tramadol HCl (Ultram) 50 mg PO QID PRN PRN Reason: Moderate Pain Last Admin: 09/11/19 04:46 Dose: 50 mg Documented by: Objective - Vital Signs Vital signs: Vital Signs Temp 97 F L 09/11/19 13:00 Pulse 87 09/11/19 13:00 Resp 16 09/11/19 15:40 BP 110/57 09/11/19 13:00 Pulse Ox 100 09/11/19 13:00 Intake & Output 09/11/19 09/11/19 09/12/19 06:59 18:59 06:59 Intake Total 2450 1600 Balance 2450 1600 Intake: Intake, IV Titration 1250 1000 Amount Sodium Chloride 0.9% 1, 1200 900 000 ml @ 100 mls/hr IV . Q10H [facility] Rx#:[id number] cefTRIAXone 1 gm In 50 100 Sodium Chloride 0.9% 50 ml @ 100 mls/hr IVPB Q12HR [facility] Rx#:[id number] Oral 1200 600 Other: Voiding Method Toilet Toilet # Voids 3 3 # Bowel Movements 0 - Exam PHYSICAL EXAMINATION: Patient is lying in the bed comfortably, no acute distress, awake alert and orie nted.. HEENT: Normocephalic. Neck is supple. Pupils reactive. Nostrils clear. Oral cavity is moist. Ears reveal no drainage. Neck reveals no JVD, carotid bruits, or thyromegaly. CHEST EXAMINATION: Trachea is central. Symmetrical expansion. Lung monroy clear to auscultation and percussion. CARDIAC: Normal S1, S2 with no gallops. No murmurs ABDOMEN: Soft. Bowel sounds normal. No organomegaly. No abdominal bruits. Extremities: reveal no edema. No clubbing or cyanosis Neurologically awake, alert, oriented x3 with well-coordinated movements. No focal deficits noted Skin: No rash or skin lesions. Psychiatric: Coperative. Nonsuicidal Musculoskeletal: No joint swelling or deformity. Normal range of motion. - Labs CBC & Chem 7: 09/11/19 08:00 09/11/19 08:00 Labs: Abnormal Lab Results - Last 24 Hours (Table) 09/11/19 09/11/19 Range/Units 08:00 08:00 Lymphocytes # 0.6 L (1.0-4.8) k/uL Chloride 109 H (98-107) mmol/L Carbon Dioxide 19 L (22-30) mmol/L Creatinine 1.09 H (0.52-1.04) mg/dL Calcium 8.2 L (8.4-10.2) mg/dL Microbiology - Last 24 Hours (Table) 09/09/19 22:25 Blood Culture - Preliminary Blood No Growth after 24 hours 09/09/19 22:11 Urine Culture - Preliminary Urine,Voided Gram Neg Bacilli Assessment and Plan Assessment: Acute pyelonephritis. Patient presents with right flank pain and discomfort in urination. Sepsis secondary to above History of polycystic kidney disease Osteoarthritis Generalized weakness and tiredness Previous history of smoking DVT prophylaxis Plan: Patient will be continued on IV hydration and antibiotics in the form of ceftriaxone. Follow up blood cultures and urine cultures. Continue with symptomatic management and supportive care. Further recommendations based on the clinical course. Time with Patient: Greater than 30
[2019-09-11] MEDS: PHENAZOPYRIDINE 100 MG TAB PO SCH (23:51)
[2019-09-12] MEDS: MORPHINE SULFATE 2 MG/ML SYRINGE IVP PRN ×5 (01:03→21:32)
[2019-09-12] MEDS: SODIUM CHLORIDE 0.9% 1,000 ML IV SCH ×3 (01:04→21:41)
[2019-09-12] MEDS ORDERED: PANTOPRAZOLE 40 MG TABLET PO SCH (07:30)
[2019-09-12] MEDS: PHENAZOPYRIDINE 100 MG TAB PO SCH ×2 (08:35→15:37)
[2019-09-12] MEDS: HEPARIN SODIUM,PORCINE 5,000 UNIT/ML 1 ML VIAL SQ SCH ×2 (08:36→15:37)
--- NOTE | 2019-09-12 08:54 | P.PN ---
Subjective Patient is a 54-year-old female with a known history of osteoarthritis, polycystic kidney disease and chronic low back pain came to ER with complaints of right flank pain. Patient has been having right flank pain for the past 3 days and radiating down the right groin. Patient does have history of pyelonephritis in the past and felt like urinary infection as per patient.. Patient was also complaining of discomfort with urination. Does have subjective fever and chills and generalized weakness and fatigue. No nausea vomiting or diarrhea. Denied any recent illnesses. No recent travel. No chest pain or shortness of breath. No headache or dizziness or lightheadedness. CT abdomen and pelvis showed no acute process. Patient does have leukocytosis with WBC count 16 BUN 32 and creatinine 1.70 Urinalysis showed Large leukocyte esterase with greater than 182 WBC s. 09/11/2019 Patient says that her right flank pain is much improved today. Able to tolerate diet. Generalized weakness is also improved. Leukocytosis is resolved. Urine culture is growing gram-negative bacilli. Final culture report is pending. Patient is being continued on IV hydration. Patient was febrile this morning. Patient is being continued on ceftriaxone. Renal function is much improved. 09/12/2019 Patient presents with left pyelonephritis, she denies burning in her micturition or dysuria or urgency. However she still complaining from suprapubic pain and tenderness. No much of back tenderness or pain. Patient was eager to be discharged today, however she had fever yesterday morning at 100.1. She has been afebrile since then and blood pressure is 132/82, blood 1.0. Urine culture showing E. coli which is sensitive to antibiotics. Objective - Vital Signs Vital signs: Vital Signs Temp 98.9 F 09/12/19 04:20 Pulse 88 09/12/19 04:20 Resp 16 09/12/19 04:20 BP 132/82 09/12/19 04:20 Pulse Ox 97 09/12/19 04:20 Intake & Output 09/11/19 09/12/19 09/12/19 18:59 06:59 18:59 Intake Total 1600 2450 Balance 1600 2450 Intake: Intake, IV Titration 1000 1250 Amount Sodium Chloride 0.9% 1, 900 1200 000 ml @ 100 mls/hr IV . Q10H COUNT INCLUDES THE [facility] Rx#:[id number] cefTRIAXone 1 gm In 100 50 Sodium Chloride 0.9% 50 ml @ 100 mls/hr IVPB Q12HR COUNT INCLUDES THE [facility] Rx#:[id number] Oral 600 1200 Other: Voiding Method Toilet Toilet Toilet # Voids 3 2 # Bowel Movements 0 - Exam Patient is lying in the bed comfortably, no acute distress, awake alert and oriented.. HEENT: Normocephalic. Neck is supple. Pupils reactive. Nostrils clear. Oral cavity is moist. Ears reveal no drainage. Neck reveals no JVD, carotid bruits, or thyromegaly. CHEST EXAMINATION: Trachea is central. Symmetrical expansion. Lung monroy clear to auscultation and percussion. CARDIAC: Normal S1, S2 with no gallops. No murmurs -ABDOMEN: Soft. Suprapubic tenderness and output to the right Bowel sounds normal. No organomegaly. No abdominal bruits. Extremities: reveal no edema. No clubbing or cyanosis Neurologically awake, alert, oriented x3 with well-coordinated movements. No fo josefina deficits noted Skin: No rash or skin lesions. Psychiatric: Coperative. Nonsuicidal Musculoskeletal: No joint swelling or deformity. Normal range of motion. - Labs CBC & Chem 7: 09/11/19 08:00 09/11/19 08:00 Labs: Abnormal Lab Results - Last 24 Hours (Table) 09/11/19 09/11/19 Range/Units 08:00 08:00 Lymphocytes # 0.6 L (1.0-4.8) k/uL Chloride 109 H (98-107) mmol/L Carbon Dioxide 19 L (22-30) mmol/L Creatinine 1.09 H (0.52-1.04) mg/dL Calcium 8.2 L (8.4-10.2) mg/dL Microbiology - Last 24 Hours (Table) 09/09/19 22:25 Blood Culture - Preliminary Blood No Growth after 48 hours 09/09/19 22:11 Urine Culture - Final Urine,Voided Escherichia coli Assessment and Plan Assessment: Acute pyelonephritis. Patient presents with right flank pain and discomfort in urination. Sepsis secondary to above History of polycystic kidney disease Osteoarthritis Generalized weakness and tiredness Previous history of smoking DVT prophylaxis Plan: Patient will be continued on IV hydration and antibiotics in the form of ceftriaxone. Continue with symptomatic management and supportive care. Further recommendations based on the clinical course.
[2019-09-12 09:18] LABS: Basophils % (A) 1 %; Eosinophils # (A) 0.1 k/uL (0-0.7); Eosinophils % (A) 1 %; HCT 35.8 % (34.0-46.0); HGB 11.5 gm/dL (11.4-16.0); Lymphocytes # (A) 0.8 k/uL (1.0-4.8); Lymphocytes % (A) 18 %; MCV 90.6 fL (80.0-100.0); Mean Platelet Volume 7.6; Monocytes # (A) 0.3 k/uL (0-1.0); Monocytes % (A) 7 %; Neutrophils # (A) 3.1 k/uL (1.3-7.7); Neutrophils % (A) 70 %; Platelet Count 172 k/uL (150-450); RBC 3.95 m/uL (3.80-5.40); RDW 12.3 % (11.5-15.5); WBC 4.4 k/uL (3.8-10.6)
[2019-09-12 09:53] LABS: Calcium 8.5 mg/dL (8.4-10.2)
[2019-09-12 20:55] VITALS: RESP 16
[2019-09-12] MEDS ORDERED: DOCUSATE 100 MG CAP PO SCH (21:00)
[2019-09-12] MEDS ORDERED: PHENAZOPYRIDINE 100 MG TAB PO SCH (22:00)
[2019-09-13] MEDS: HEPARIN SODIUM,PORCINE 5,000 UNIT/ML 1 ML VIAL SQ SCH (06:01)
[2019-09-13 06:07] VITALS: BP 150/78; PULSE 78; TEMP 98
--- NOTE | 2019-09-13 08:34 | P.DS ---
Providers Date of admission: 09/09/19 22:59 Attending physician: Héctor Krause Primary care physician: [facility] Course: Diagnoses: Acute left side pyelonephritis. Patient presents with right flank pain and discomfort in urination. Sepsis secondary to above History of polycystic kidney disease Osteoarthritis Generalized weakness and tiredness Previous history of smoking Hospital course: Patient is a 54-year-old female with a known history of osteoarthritis, polycystic kidney disease and chronic low back pain came to ER with complaints of right flank pain. Patient has been having right flank pain for the past 3 days and radiating down the right groin. Patient does have history of pyelonephritis in the past and felt like urinary infection as per patient.. Patient was also complaining of discomfort with urination. Patient was found to have pyelonephritis.CT abdomen and pelvis showed no acute process. And she responded to therapy with ceftriaxone and IV hydration. Urine cultures came back positive for E. coli sensitive to many antibiotics including cephalosporins. Patient showed interval improvement with her symptoms are significantly improved, patient has been afebrile for more than 48 hours. Her leukocytosis came back to normal. And her creatinine is significantly improved. On the day of discharge she denies new complaint. She denies chest pain or dyspnea, tone change in bowel habits. No fever. Patient was eager to go home Problems and management plan were discussed with the patient and he verbalized understanding and acceptance Patient was found stable and can be discharged home however he needs follow-up as an outpatient. Patient was instructed to follow up with PCP within one week and patient agrees. Also patient was instructed to follow up with her urologist in 1-2 weeks and she agrees. Patient also has a account planner that she wants to follow up with and she encouraged to do that. Patient wants to make her all appointments Gen: patient is a AAOx3, no distress CVS: S1-S2, RRR, no murmur Lungs: B/L CTA, no wheezing -Abdomen: soft, no distention, mild suprapubic tenderness with no rebound tenderness, positive bowel sounds Extremity: no leg edema or induration Time spent more than 35 minutes Patient Condition at Discharge: Serious Plan - Discharge Summary Discharge Rx Participant: Yes New Discharge Prescriptions: New Cefuroxime Axetil [Ceftin] 500 mg PO BID #14 tab Pantoprazole [Protonix] 40 mg PO AC-BRKFST #7 tablet.dr Continue Lisinopril [Prinivil] 5 mg PO DAILY Cholecalciferol [Vitamin D3 (25 Mcg = 1000 Iu)] 2,000 unit PO DAILY [place]-3 Fatty Acids/Fish Oil [Fish Oil 1,000 mg Softgel] 1 cap PO DAILY Fluticasone Nasal [place] [Flonase Nasal [place]] 2 spr EA NOSTRIL DAILY PRN PRN Reason: Nasal Congestion HYDROcodone/APAP 7.5-325MG [[place] 7.5-325] 1 tab PO TID PRN PRN Reason: Pain Discharge Medication List Lisinopril [Prinivil] 5 mg PO DAILY 03/19/15 [History] Cholecalciferol [Vitamin D3 (25 Mcg = 1000 Iu)] 2,000 unit PO DAILY 09/15/16 [History] Fluticasone Nasal [place] [Flonase Nasal [place]] 2 spr EA NOSTRIL DAILY PRN 01/10/18 [History] [place]-3 Fatty Acids/Fish Oil [Fish Oil 1,000 mg Softgel] 1 cap PO DAILY 01/10/18 [History] HYDROcodone/APAP 7.5-325MG [[place] 7.5-325] 1 tab PO TID PRN 09/09/19 [History] Cefuroxime Axetil [Ceftin] 500 mg PO BID #14 tab 09/13/19 [Rx] Pantoprazole [Protonix] 40 mg PO AC-BRKFST #7 tablet. 09/13/19 [Rx] Follow up Appointment(s)/Referral(s): Braydon Warner DO [Primary Care Provider] - 1-2 days Napoleon Mcnally MD [STAFF PHYSICIAN] - 1 Week (urologist ) Activity/Diet/Wound Care/Special Instructions: Resume previous diet Activity is limited till you see your doctor Discharge Disposition: HOME SELF-CARE
== END 2019-09-13 09:36 | disposition home or self-care (01) | DRG 872 ==
LOC: EC 20:50 → 3NMEDONC 22:59
PROVIDERS: ADMIT Hospitalist; ATTEND Hospitalist
DX: A41.51 Sepsis due to Escherichia coli [E. coli] (principal); N10 Acute pyelonephritis; N17.9 Acute kidney failure, unspecified; Q61.3 Polycystic kidney, unspecified; F40.240 Claustrophobia; M19.90 Unspecified osteoarthritis, unspecified site; Z79.899 Other long term (current) drug therapy; Z80.0 Family history of malignant neoplasm of digestive organs; Z80.3 Family history of malignant neoplasm of breast; Z87.891 Personal history of nicotine dependence; Z80.49 Family history of malignant neoplasm of other genital organs
CPT/HCPCS: 36415; 74176; 80048; 80053; 81001; 81025; 83605; 83690; 85025; 87040; 87077; 87086; 87186; 96365; 96375; 99285

== ENCOUNTER → 2019-10-18 | Outpatient (CLI) | payer OTHER ==
--- NOTE | 2019-10-20 14:11 | MM ---
Reason for exam: screening (asymptomatic). Last mammogram was performed 1 year and 1 month ago. History: Patient is postmenopausal. Family history of breast cancer in cousin and breast cancer in sister at age 56. Took hormonal contraceptives for 3 years beginning at age 45. Physical Findings: A clinical breast exam by your physician is recommended on an annual basis and results should be correlated with mammographic findings. MG Screening Mammo w CAD Bilateral CC and MLO view(s) were taken. Prior study comparison: September 17, 2018, bilateral MG screening mammo w CAD. September 01, 2017, right breast MG work up mamm w CAD RT. There are scattered fibroglandular densities. No significant changes when compared with prior studies. ASSESSMENT: Negative, BI-RAD 1 RECOMMENDATION: Routine screening mammogram of both breasts in 1 year.
== END | disposition home or self-care (01) ==
LOC: RADMAMWWP 10:12
PROVIDERS: ATTEND Obstetrics & Gynecology
DX: Z12.31 Encounter for screening mammogram for malignant neoplasm of breast (principal); Z80.3 Family history of malignant neoplasm of breast
CPT/HCPCS: 77067

== ENCOUNTER 2019-12-06 08:19 | Emergency (ER) | payer OTHER ==
[2019-12-06] MEDS ORDERED: SODIUM CHLORIDE 0.9% 1,000 ML IV STA (09:17)
[2019-12-06] MEDS ORDERED: MORPHINE SULFATE 4 MG/ML SYRINGE IV STA (09:17)
[2019-12-06] MEDS ORDERED: ONDANSETRON 4 MG/2 ML VIAL IVP STA (09:17)
--- NOTE | 2019-12-06 09:20 | ED ---
General Adult HPI - General Chief complaint: Abdominal Pain Stated complaint: kidney pain Time Seen by Provider: 12/06/19 08:54 Source: patient, RN notes reviewed Mode of arrival: ambulatory Limitations: no limitations - History of Present Illness Initial comments: 54-year-old female with a past medical history polycystic kidney disease, chronic abdominal and back pain presents to the emergency department for acute on chronic back pain. Patient states that since the past 5 days she has had increased back and lower abdominal pain. States she feels it may be related to her polycystic kidney disease. States that in the past she has had to have cys ts drained at another hospital and feels like she may be at that point. However she did not feel like driving down to the hospital where her urologist is soaking to this emergency Department. Patient states she has been on Cipro for the past several days because she had blood in her urine. She denies fevers or chills.Patient has no other complaints at this time including shortness of breath, chest pain, nausea or vomiting, headache, or visual changes. - Related Data Home Medications Medication Instructions Recorded Confirmed Lisinopril [Prinivil] 5 mg PO DAILY 03/19/15 12/06/19 Cholecalciferol [Vitamin D3 (25 2,000 unit PO DAILY 09/15/16 12/06/19 Mcg = 1000 Iu)] Fluticasone Nasal [place] [Flonase 2 spr EA NOSTRIL DAILY PRN 01/10/18 12/06/19 Nasal [place]] [place]-3 Fatty Acids/Fish Oil [Fish 1 cap PO DAILY 01/10/18 12/06/19 Oil 1,000 mg Softgel] HYDROcodone/APAP 7.5-325MG [[place] 1 tab PO TID PRN 09/09/19 12/06/19 7.5-325] Ciprofloxacin HCl [Cipro] 500 mg PO Q12HR 12/06/19 12/06/19 Ranitidine HCl [Zantac] 150 mg PO DAILY 12/06/19 12/06/19 Previous Rx's Medication Instructions Recorded HYDROcodone/APAP 5-325MG [[place] 1 tab PO Q6HR PRN #10 tab 12/06/19 5-325] Allergies Allergy/AdvReac Type Severity Reaction Status Date / Time No Known Allergies Allergy Verified 12/06/19 09:45 Review of Systems ROS Statement: Those systems with pertinent positive or pertinent negative responses have been documented in the HPI. ROS Other: All systems not noted in ROS Statement are negative. Past Medical History Past Medical History: Osteoarthritis (OA) Additional Past Medical History / Comment(s): POLYCYSTIC KIDNEY DISEASE. CHRONIC ABDOMINAL & LOWER BACK PAIN DUE TO PKD., STATES LISINOPRIL IS FOR KIDNEY PROTECTION. right plantar fascitis right foot. claustrophobic History of Any Multi-Drug Resistant Organisms: None Reported Past Surgical History: Hernia Repair, Uterine Ablation Additional Past Surgical History / Comment(s): KIDNEY CYSTS DRAINED., GLASS REMOVED FROM FINGER. Past Anesthesia/Blood Transfusion Reactions: No Reported Reaction Past Psychological History: No Psychological Hx Reported Smoking Status: Former smoker Past Alcohol Use History: Rare Past Drug Use History: None Reported - Past Family History Father Family Medical History: Cancer Additional Family Medical History / Comment(s): COLON CANCER Sister(s) Family Medical History: Cancer Additional Family Medical History / Comment(s): BREAST CANCER, POLYPS Brother(s) Family Medical History: Cancer Additional Family Medical History / Comment(s): TESTICULAR CANCER General Exam Limitations: no limitations General appearance: alert, in no apparent distress Head exam: Present: atraumatic, normocephalic, normal inspection Eye exam: Present: normal appearance, PERRL, EOMI. Absent: scleral icterus, conjunctival injection ENT exam: Present: normal exam, mucous membranes moist Neck exam: Present: normal inspection. Absent: tenderness, meningismus, lymphadenopathy Respiratory exam: Present: normal lung sounds bilaterally. Absent: respiratory distress, wheezes, rales, rhonchi, stridor Cardiovascular Exam: Present: regular rate, normal rhythm, normal heart sounds. Absent: systolic murmur, diastolic murmur, rubs, gallop, clicks GI/Abdominal exam: Present: soft, tenderness (Generalized abdominal tenderness, soft in nature. No guarding.), normal bowel sounds. Absent: distended, guarding, rebound, rigid Back exam: Present: CVA tenderness (R), CVA tenderness (L) Neurological exam: Present: alert Course Vital Signs 12/06/19 12/06/19 08:35 09:59 Temperature 97.8 F Pulse Rate 64 66 Respiratory 16 18 Rate Blood Pressure 143/75 137/87 O2 Sat by Pulse 97 97 Oximetry Medical Decision Making - Medical Decision Making Patient presents for acute on chronic back and abdominal pain related to polycystic kidney disease. States that the last time she had pain like this she had cyst drained and feels like she may be at that point. Patient did not feel like driving down to the hospital where her manager procurement works out of. Initially on exam patient has minimal abdominal tenderness generalized in nature. However abdomen is soft. Bilateral CVA tenderness. CBC CMP unremarkable. There is some evidence of dehydration on CMP. Urinalysis does not show any evidence of infection. Ultrasound of the kidneys renal bladder showed renal parenchyma essentially replaced by cysts bilaterally. I did reevaluate patient after pain medication and she states she is in no pain at this time. I reevaluated her abdomen and it is completely nontender. Patient has an appointment with her manager procurement in 2 days. At this time patient is out of her [place] so I will write her this prescription. She will follow up at her appointment and return if she has any worsening symptoms. I discussed this case with attending Dr. Velez who agrees with this assessment and treatment plan. - Lab Data Result diagrams: 12/06/19 09:10 12/06/19 09:10 Lab Results 12/06/19 12/06/19 12/06/19 Range/Units 09:10 09:10 09:10 WBC 7.0 (3.8-10.6) k/uL RBC 4.76 (3.80-5.40) m/uL Hgb 14.0 (11.4-16.0) gm/dL Hct 42.5 (34.0-46.0) % MCV 89.3 (80.0-100.0) fL MCH 29.4 (25.0-35.0) pg MCHC 32.9 (31.0-37.0) g/dL RDW 12.9 (11.5-15.5) % Plt Count 254 (150-450) k/uL Neutrophils % 65 % Lymphocytes % 23 % Monocytes % 5 % Eosinophils % 5 % Basophils % 1 % Neutrophils # 4.5 (1.3-7.7) k/uL Lymphocytes # 1.6 (1.0-4.8) k/uL Monocytes # 0.3 (0-1.0) k/uL Eosinophils # 0.4 (0-0.7) k/uL Basophils # 0.0 (0-0.2) k/uL Sodium 138 (137-145) mmol/L Potassium 4.4 (3.5-5.1) mmol/L Chloride 106 (98-107) mmol/L Carbon Dioxide 23 (22-30) mmol/L Anion Gap 9 mmol/L BUN 27 H (7-17) mg/dL Creatinine 0.97 (0.52-1.04) mg/dL Est GFR (CKD-EPI)AfAm 77 (>60 ml/min/1.73 sqM) Est GFR (CKD-EPI)NonAf 67 (>60 ml/min/1.73 sqM) Glucose 83 (74-99) mg/dL Calcium 9.6 (8.4-10.2) mg/dL Total Bilirubin 0.4 (0.2-1.3) mg/dL AST 24 (14-36) U/L ALT 23 (4-34) U/L Alkaline Phosphatase 57 (38-126) U/L Total Protein 7.3 (6.3-8.2) g/dL Albumin 4.3 (3.5-5.0) g/dL Amylase 60 (30-110) U/L Lipase 92 (23-300) U/L Urine Color Yellow Urine Appearance Clear (Clear) Urine pH 5.0 (5.0-8.0) Ur Specific [place] 1.005 (1.001-1.035) Urine Protein Negative (Negative) Urine Glucose (UA) Negative (Negative) Urine Ketones Negative (Negative) Urine Blood Negative (Negative) Urine Nitrite Negative (Negative) Urine Bilirubin Negative (Negative) Urine Urobilinogen <2.0 (<2.0) mg/dL Ur Leukocyte Esterase Negative (Negative) Disposition Clinical Impression: Flank pain Disposition: HOME SELF-CARE Condition: Good Instructions (If sedation given, give patient instructions): Abdominal Pain (ED) Additional Instructions: Please take [place] as needed for pain. Follow-up with your manager procurement at your appointment in 2 days. If you are having any worsening symptoms return here to the emergency department. Prescriptions: HYDROcodone/APAP 5-325MG [[place] 5-325] 1 tab PO Q6HR PRN #10 tab PRN Reason: Pain Is patient prescribed a controlled substance at d/c from ED?: Yes When asked, does pt state using other controlled substances?: No If prescribed controlled substance>3 days was MAPS reviewed?: Prescribed <3 Days If opioid is for acute pain is fill amount 7 days or less?: Yes If Rx opioid, was Start Talking consent form obtained?: Yes Referrals: Braydon Warner DO [Primary Care Provider] - 1-2 days Time of Disposition: 11:45
[2019-12-06 09:36] LABS: Basophils % (A) 1 %; Eosinophils # (A) 0.4 k/uL (0-0.7); Eosinophils % (A) 5 %; HCT 42.5 % (34.0-46.0); Lymphocytes # (A) 1.6 k/uL (1.0-4.8); Lymphocytes % (A) 23 %; MCH 29.4 pg (25.0-35.0); MCHC 32.9 g/dL (31.0-37.0); MCV 89.3 fL (80.0-100.0); Mean Platelet Volume 8.2; Monocytes # (A) 0.3 k/uL (0-1.0); Monocytes % (A) 5 %; Neutrophils # (A) 4.5 k/uL (1.3-7.7); Neutrophils % (A) 65 %; Platelet Count 254 k/uL (150-450); RBC 4.76 m/uL (3.80-5.40); RDW 12.9 % (11.5-15.5)
[2019-12-06 09:39] LABS: Color,Urine Yellow
[2019-12-06 09:40] LABS: Appearance,Urine Clear (Clear); Bilirubin,Urine Negative (Negative); Blood,Urine Negative (Negative); Glucose,Urine (UA) Negative (Negative); Ketones,Urine Negative (Negative); Leukocyte Esterase,Urine Negative (Negative); Nitrite,Urine Negative (Negative); Protein,Urine Negative (Negative); Specific Gravity,Urine 1.005 (1.001-1.035); Urobilinogen,Urine <2.0 mg/dL (<2.0)
[2019-12-06 09:44] LABS: Albumin 4.3 g/dL (3.5-5.0); Calcium 9.6 mg/dL (8.4-10.2); Potassium 4.4 mmol/L (3.5-5.1); Total Bilirubin 0.4 mg/dL (0.2-1.3); Total Protein 7.3 g/dL (6.3-8.2)
[2019-12-06 10:01] VITALS: RESP 18
[2019-12-06] MEDS ORDERED: HYDROmorphone 0.5 MG/0.5 ML SYRINGE IVP STA (10:23)
--- NOTE | 2019-12-06 11:24 | US ---
EXAMINATION TYPE: US kidneys/renal and bladder DATE OF EXAM: 12/06/2019 COMPARISON: CT's CLINICAL HISTORY: pain. History of polycystic kidneys EXAM MEASUREMENTS: Right Kidney: 19.5 x 10.1 x 11.2 cm Left Kidney: 18.7 x 9.6 x 9.6 cm Difficult to accurately measure kidneys as they cannot be visualized in one image, measurements are e stimations. Right Kidney: Multiple cysts, unable to see renal parenchyma, enlarged. Left Kidney: Multiple cysts, unable to see renal parenchyma, enlarged. Bladder: wnl Bilateral Jets seen: No No ascites. IMPRESSION: Renal parenchyma is essentially replaced by cysts bilaterally, consider autosomal dominant polycystic kidney disease.
[2019-12-06 12:03] VITALS: BP 141/81; PULSE 77; TEMP 98.7
== END 2019-12-06 11:59 | disposition home or self-care (01) ==
LOC: EC 08:19
DX: R10.30 Lower abdominal pain, unspecified (principal); R10.817 Generalized abdominal tenderness; E86.0 Dehydration; Z79.899 Other long term (current) drug therapy; Z87.891 Personal history of nicotine dependence
CPT/HCPCS: 36415; 80053; 82150; 83690; 85025; 81003; 76770; 99284; 96374; 96375 ×2; 96361 ×2; J2270; J2405; J1170

== ENCOUNTER → 2020-02-16 | Outpatient (CLI) | payer OTHER ==
[2020-02-16 10:19] LABS: Basophils # (A) 0.1 k/uL (0-0.2); Basophils % (A) 1 %; Eosinophils # (A) 0.3 k/uL (0-0.7); Eosinophils % (A) 3 %; HCT 44.5 % (34.0-46.0); Lymphocytes # (A) 1.2 k/uL (1.0-4.8); Lymphocytes % (A) 17 %; MCH 28.9 pg (25.0-35.0); MCHC 31.5 g/dL (31.0-37.0); MCV 91.7 fL (80.0-100.0); Mean Platelet Volume 7.9; Monocytes # (A) 0.4 k/uL (0-1.0); Monocytes % (A) 5 %; Neutrophils # (A) 5.1 k/uL (1.3-7.7); Neutrophils % (A) 72 %; Platelet Count 237 k/uL (150-450); RBC 4.86 m/uL (3.80-5.40); RDW 12.2 % (11.5-15.5); WBC 7.2 k/uL (3.8-10.6)
[2020-02-16 10:27] LABS: Albumin 4.4 g/dL (3.5-5.0); Calcium 9.5 mg/dL (8.4-10.2); Potassium 4.7 mmol/L (3.5-5.1); Total Bilirubin 0.6 mg/dL (0.2-1.3); Total Protein 7.5 g/dL (6.3-8.2)
--- NOTE | 2020-02-16 16:02 | CT ---
EXAMINATION TYPE: CT abdomen pelvis w con DATE OF EXAM: 02/16/2020 HISTORY: Left lower quadrant pain x [address] DLP: 1733.4mGycm Automated Exposure Control for Dose Reduction was Utilized. CONTRAST: CT scan of the abdomen and pelvis is performed with oral and with IV Contrast, patient injected with 80 mL of Isovue M300. COMPARISON: CT abdomen and pelvis September 09, [address] 2014[address] FINDINGS: LUNG BASES: No significant abnormality is appreciated. LIVER/GB: Multiple thin-walled cysts are redemonstrated scattered throughout the liver. PANCREAS: No significant abnormality is seen. SPLEEN: No significant abnormality is seen. ADRENALS: No significant abnormality is seen. KIDNEYS: Redemonstration of enlarged bilateral kidneys with innumerable thin-walled cysts. CT finding s consistent with underlying polycystic kidney disease. Marked cortical volume loss. Roughly 3 small nonspecific calcification scattered throughout visualized left kidney. No definitive hydroureter. No intraluminal calculus in bladder. BOWEL: Oral contrast does not reach level of terminal ileum making evaluation of distal bowel slightl y suboptimal. Appendix upper limits of normal in size without surrounding inflammatory change. No eva picious small or large bowel dilatation. UTERUS/ADNEXA: Anteverted uterus projects just to left of midline. No adnexal masses LYMPH NODES: No greater than 1cm abdominal or pelvic lymph nodes are appreciated. OSSEOUS STRUCTURES: Mild disc space narrowing and vacuum disc phenomenon and lower lumbar levels. Mil d axial joint space loss both hips. OTHER: No significant additional abnormality is seen. IMPRESSION: No significant new or acute finding is seen to account for patient's clinical symptoms. U nderlying adult type polycystic kidney disease redemonstrated.
== END | disposition home or self-care (01) ==
LOC: RADCTMAIN 09:20
PROVIDERS: ATTEND Family Medicine
DX: N28.1 Cyst of kidney, acquired (principal); R10.32 Left lower quadrant pain
CPT/HCPCS: 80053; 82150; 83690; 85025; 74177; 36415; Q9967 ×2

== ENCOUNTER → 2020-10-18 | Outpatient (CLI) | payer OTHER ==
--- NOTE | 2020-10-18 20:50 | BD ---
EXAMINATION TYPE: Axial Bone Density DATE OF EXAM: 10/18/2020 COMPARISON: 09/17/2018 CLINICAL HISTORY: Postmenopausal female. Height: 63 IN Weight: 211 LBS FRAX RISK QUESTIONS: Family History (Parent hip fracture): YES FATHER RISK FACTORS HISTORY OF: Family History of Osteoporosis: MOTHER, FATHER, SISTER, BROTHER Active: YES Diet low in dairy products/other sources of calcium: YES Postmenopausal woman: [place] AGE 48 Take estrogen and/or progesterone medications: PT TAKES PREMPRO FOR 6 MONTHS. TOOK CONTROL FOR 3 YEARS MEDICATIONS: Additional Medications: VIT D, LISINOPRIL,PREMPRO, NORCO, STOMACH MEDS, FISH OIL EXAM MEASUREMENTS: Bone mineral densitometry was performed using the [employer]. Bone mineral density as measured about the Lumbar spine is: ----- L1-L4(G/cm2): 0.948 T Score Values are as follows: ----- L2: -2.1 ----- L3: -1.6 ----- L4: -1.4 ----- L1-L4: -1.9 Bone mineral density has: Decreased -7.7% since study of: 09/17/2018 Bone mineral density about the R hip (g/cm2): 0.994 Bone mineral density about the L hip (g/cm2): 0.983 T Score values are as follows: -----R Neck: -0.3 -----L Neck: -0.4 -----R Total: 0.4 -----L Total: 0.6 Bone mineral density has: Decreased -4.5% since study of: 09/17/2018 IMPRESSION: Osteopenia remains present (T Score between -2.5 and -1). Bone density decreased or is diminished fro m prior. There is slightly increased risk of fracture and the patient may be considered for treatment. Re-Screen 2-5 years. NOTE: T-SCORE=SD OF THE YOUNG ADULT MEAN.
== END | disposition home or self-care (01) ==
LOC: RADBDWWP 08:58
PROVIDERS: ATTEND Obstetrics & Gynecology
DX: M85.80 Other specified disorders of bone density and structure, unspecified site (principal)
CPT/HCPCS: 77080

== ENCOUNTER → 2020-11-14 | Outpatient (CLI) | payer OTHER ==
--- NOTE | 2020-11-16 08:09 | MM ---
Reason for exam: screening (asymptomatic). Last mammogram was performed 1 year and 1 month ago. History: Patient is postmenopausal. Family history of breast cancer in cousin and breast cancer in sister at age 56. Took hormonal contraceptives for 3 years beginning at age 45. Physical Findings: A clinical breast exam by your physician is recommended on an annual basis and results should be correlated with mammographic findings. MG Screening Mammo w CAD Bilateral CC and MLO view(s) were taken. Prior study comparison: October 18, 2019, bilateral MG screening mammo w CAD. September 17, 2018, bilateral MG screening mammo w CAD. The breast tissue is heterogeneously dense. This may lower the sensitivity of mammography. No significant changes when compared with prior studies. ASSESSMENT: Negative, BI-RAD 1 RECOMMENDATION: Routine screening mammogram of both breasts in 1 year.
== END | disposition home or self-care (01) ==
LOC: RADMAMWWP 13:12
PROVIDERS: ATTEND Obstetrics & Gynecology
DX: Z12.31 Encounter for screening mammogram for malignant neoplasm of breast (principal)
CPT/HCPCS: 77067

== ENCOUNTER 2020-12-28 20:48 | Emergency (ER) | payer OTHER ==
[2020-12-28 20:53] VITALS: TEMP 98.4
[2020-12-28] MEDS ORDERED: SODIUM CHLORIDE 0.9% 1,000 ML IV STA (21:10)
[2020-12-28] MEDS ORDERED: ONDANSETRON 4 MG/2 ML VIAL IVP STA (21:10)
[2020-12-28] MEDS ORDERED: KETOROLAC 15 MG/ML 1 ML VIAL IVP STA (21:11)
--- NOTE | 2020-12-28 21:16 | ED ---
Female Urogenital HPI - General Chief complaint: Urogenital Stated complaint: Kidney pain Time Seen by Provider: 12/28/20 20:56 Source: patient Mode of arrival: ambulatory Limitations: no limitations - History of Present Illness Initial comments: Patient is a 55-year-old female, history of polycystic kidney disease, presenting to the emergency Department with complaints of a possible kidney infection. Patient states one week ago she started having symptoms of dysuria, nausea and lower abdominal pain. She went to an urgent care a few days later and was started on Macrobid. Patient states yesterday they called her with her urine culture results and switch her to amoxicillin. Patient states she is still not improving, she having intermittent fevers, lower abdominal pain as well as left-sided abdominal pain and flank pain, nausea. Her appetite has been low. She did take naproxen this morning. She does have history kidney stones as well. She states the pain is intermittent, sharp at times. She denies any hematuria. She denies any chest pain or short of breath. She has no further complaints at this time. Upon arrival to the ER, her vital signs are stable. - Related Data Home Medications Medication Instructions Recorded Confirmed Lisinopril [Prinivil] 5 mg PO DAILY 03/19/15 12/06/19 Cholecalciferol [Vitamin D3 (25 2,000 unit PO DAILY 09/15/16 12/06/19 Mcg = 1000 Iu)] Fluticasone Nasal [place] [Flonase 2 spr EA NOSTRIL DAILY PRN 01/10/18 12/06/19 Nasal [place]] Everet[place]-3 Fatty Acids/Fish Oil [Fish 1 cap PO DAILY 01/10/18 12/06/19 Oil 1,000 mg Softgel] HYDROcodone/APAP 7.5-325MG [[place] 1 tab PO TID PRN 09/09/19 12/06/19 7.5-325] Ciprofloxacin HCl [Cipro] 500 mg PO Q12HR 12/06/19 12/06/19 raNITIdine HCL [Zantac] 150 mg PO DAILY 12/06/19 12/06/19 Previous Rx's Medication Instructions Recorded HYDROcodone/APAP 5-325MG [[place] 1 tab PO Q6HR PRN #10 tab 12/06/19 5-325] Ciprofloxacin HCl [Cipro] 500 mg PO BID 7 Days #14 tab 12/28/20 Allergies Allergy/AdvReac Type Severity Reaction Status Date / Time No Known Allergies Allergy Verified 12/28/20 20:53 Review of Systems ROS Statement: Those systems with pertinent positive or pertinent negative responses have been documented in the HPI. ROS Other: All systems not noted in ROS Statement are negative. Past Medical History Past Medical History: Osteoarthritis (OA) Additional Past Medical History / Comment(s): POLYCYSTIC KIDNEY DISEASE. CHRONIC ABDOMINAL & LOWER BACK PAIN DUE TO PKD., STATES LISINOPRIL IS FOR KIDNEY PROTECTION. right plantar fascitis right foot. claustrophobic History of Any Multi-Drug Resistant Organisms: None Reported Past Surgical History: Hernia Repair, Uterine Ablation Additional Past Surgical History / Comment(s): KIDNEY CYSTS DRAINED., GLASS REMOVED FROM FINGER. Past Anesthesia/Blood Transfusion Reactions: No Reported Reaction Past Psychological History: No Psychological Hx Reported Smoking Status: Never smoker Past Alcohol Use History: Rare Past Drug Use History: None Reported - Past Family History Father Family Medical History: Cancer Additional Family Medical History / Comment(s): COLON CANCER Sister(s) Family Medical History: Cancer Additional Family Medical History / Comment(s): BREAST CANCER, POLYPS Brother(s) Family Medical History: Cancer Additional Family Medical History / Comment(s): TESTICULAR CANCER General Exam - General Exam Comments Initial Comments: GENERAL: Patient is well-developed and well-nourished. Patient is nontoxic and in no acute distress. HEAD: Atraumatic, normocephalic. EYES: Pupils equal round and reactive to light, extraocular movements intact, sclera anicteric, conjunctiva are normal. Eyelids were unremarkable. ENT: TMs normal, nares patent, oropharynx clear without exudates. Moist mucous membranes. NECK: Normal range of motion, supple without lymphadenopathy or JVD. LUNGS: Unlabored respirations. Breath sounds clear to auscultation bilaterally and equal. No wheezes rales or rhonchi. HEART: Regular rate and rhythm without murmurs, rubs or gallops. ABDOMEN: Soft, tender of the left side of the abdomen, left flank pain. normoactive bowel sounds. No guarding, no rebound. No masses appreciated. : Deferred MUSCULOSKELETAL: Normal extremities with adequate strength and normal range of motion, no pitting or edema. No clubbing or cyanosis. NEUROLOGICAL: Patient is alert and oriented x 3. Motor and sensory are also intact. Cranial nerves II through XII grossly intact. Symmetrical smile. Normal speech, normal gait. PSYCH: Normal mood, normal affect. SKIN: Warm, Dry, normal turgor, no rashes or lesions noted. Limitations: no limitations Course Vital Signs 12/28/20 12/28/20 20:49 21:53 Temperature 98.4 F Pulse Rate 94 78 Respiratory 18 16 Rate Blood Pressure 113/63 112/76 O2 Sat by Pulse 97 98 Oximetry Medical Decision Making - Medical Decision Making Patient is a 55-year-old female with history of polycystic kidney disease presenting with a possible kidney infection. Started having symptoms 1 week ago, has been on Macrobid and then switched to amoxicillin yesterday without improvement in her symptoms. Her vital signs are stable upon arrival. She does have some left-sided abdominal pain and left flank pain on exam. Labs show a white count 14.2, lactic acid is normal, kidney function is stable as well. Urine does show some bacteria, urine culture is pending. I did do a computed tomography scan to rule out stone, patient's polycystic kidney disease is stable , no other acute findings. Patient was given some fluids, Zofran, reports intermittent symptoms. I discussed with patient that her symptoms are consistent with pyelonephritis. I will give her 1 g of Rocephin in the ER today, started her on Cipro. Patient is in agreement with this plan of care. She is stable for discharge. Return parameters were discussed with the patient she verbalized understanding. She'll follow up with her PCP. Case discussed with Dr. Ortiz. - Lab Data Result diagrams: 12/28/20 21:32 12/28/20 21:32 Lab Results 12/28/20 12/28/20 12/28/20 Range/Units 21:32 21:32 21:32 WBC 14.2 H (3.8-10.6) k/uL RBC 4.05 (3.80-5.40) m/uL Hgb 12.3 (11.4-16.0) gm/dL Hct 35.5 (34.0-46.0) % MCV 87.6 (80.0-100.0) fL MCH 30.4 (25.0-35.0) pg MCHC 34.7 (31.0-37.0) g/dL RDW 11.8 (11.5-15.5) % Plt Count 223 (150-450) k/uL MPV 7.5 Neutrophils % 87 % Lymphocytes % 6 % Monocytes % 5 % Eosinophils % 1 % Basophils % 0 % Neutrophils # 12.4 H (1.3-7.7) k/uL Lymphocytes # 0.8 L (1.0-4.8) k/uL Monocytes # 0.7 (0-1.0) k/uL Eosinophils # 0.1 (0-0.7) k/uL Basophils # 0.0 (0-0.2) k/uL Sodium 135 L (137-145) mmol/L Potassium 3.6 (3.5-5.1) mmol/L Chloride 103 (98-107) mmol/L Carbon Dioxide 21 L (22-30) mmol/L Anion Gap 11 mmol/L BUN 27 H (7-17) mg/dL Creatinine 1.38 H (0.52-1.04) mg/dL Est GFR (CKD-EPI)AfAm 50 (>60 ml/min/1.73 sqM) Est GFR (CKD-EPI)NonAf 43 (>60 ml/min/1.73 sqM) Glucose 178 H (74-99) mg/dL Plasma Lactic Acid Enoc 1.2 (0.7-2.0) mmol/L Calcium 8.6 (8.4-10.2) mg/dL Total Bilirubin 0.9 (0.2-1.3) mg/dL AST 18 (14-36) U/L ALT 14 (4-34) U/L Alkaline Phosphatase 88 (38-126) U/L Total Protein 6.2 L (6.3-8.2) g/dL Albumin 3.5 (3.5-5.0) g/dL Lipase 46 (23-300) U/L Urine Color Urine Appearance (Clear) Urine pH (5.0-8.0) Ur Specific [place] (1.001-1.035) Urine Protein (Negative) Urine Glucose (UA) (Negative) Urine Ketones (Negative) Urine Blood (Negative) Urine Nitrite (Negative) Urine Bilirubin (Negative) Urine Urobilinogen (<2.0) mg/dL Ur Leukocyte Esterase (Negative) Urine RBC (0-5) /hpf Urine WBC (0-5) /hpf Ur Squamous Epith Cells (0-4) /hpf Amorphous Sediment (None) /hpf Urine Bacteria (None) /hpf Urine Mucus (None) /hpf 12/28/20 Range/Units 21:47 WBC (3.8-10.6) k/uL RBC (3.80-5.40) m/uL Hgb (11.4-16.0) gm/dL Hct (34.0-46.0) % MCV (80.0-100.0) fL MCH (25.0-35.0) pg MCHC (31.0-37.0) g/dL RDW (11.5-15.5) % Plt Count (150-450) k/uL MPV Neutrophils % % Lymphocytes % % Monocytes % % Eosinophils % % Basophils % % Neutrophils # (1.3-7.7) k/uL Lymphocytes # (1.0-4.8) k/uL Monocytes # (0-1.0) k/uL Eosinophils # (0-0.7) k/uL Basophils # (0-0.2) k/uL Sodium (137-145) mmol/L Potassium (3.5-5.1) mmol/L Chloride (98-107) mmol/L Carbon Dioxide (22-30) mmol/L Anion Gap mmol/L BUN (7-17) mg/dL Creatinine (0.52-1.04) mg/dL Est GFR (CKD-EPI)AfAm (>60 ml/min/1.73 sqM) Est GFR (CKD-EPI)NonAf (>60 ml/min/1.73 sqM) Glucose (74-99) mg/dL Plasma Lactic Acid Enoc (0.7-2.0) mmol/L Calcium (8.4-10.2) mg/dL Total Bilirubin (0.2-1.3) mg/dL AST (14-36) U/L ALT (4-34) U/L Alkaline Phosphatase (38-126) U/L Total Protein (6.3-8.2) g/dL Albumin (3.5-5.0) g/dL Lipase (23-300) U/L Urine Color Yellow Urine Appearance Cloudy H (Clear) Urine pH 5.5 (5.0-8.0) Ur Specific [place] 1.014 (1.001-1.035) Urine Protein 1+ H (Negative) Urine Glucose (UA) Negative (Negative) Urine Ketones Negative (Negative) Urine Blood Small H (Negative) Urine Nitrite Negative (Negative) Urine Bilirubin Negative (Negative) Urine Urobilinogen <2.0 (<2.0) mg/dL Ur Leukocyte Esterase Moderate H (Negative) Urine RBC 6 H (0-5) /hpf Urine WBC 26 H (0-5) /hpf Ur Squamous Epith Cells 36 H (0-4) /hpf Amorphous Sediment Occasional H (None) /hpf Urine Bacteria Rare H (None) /hpf Urine Mucus Few H (None) /hpf Disposition Clinical Impression: Pyelonephritis Disposition: HOME SELF-CARE Condition: Stable Instructions (If sedation given, give patient instructions): Kidney Infection (ED) Additional Instructions: Please return to the Emergency Department if symptoms worsen or any other concerns. Take antibiotics as prescribed. Continue to increase water intake. Follow-up with your regular doctor. Prescriptions: Ciprofloxacin HCl [Cipro] 500 mg PO BID 7 Days #14 tab Is patient prescribed a controlled substance at d/c from ED?: No Referrals: Braydon Warner DO [Primary Care Provider] - 1-2 days
[2020-12-28 21:38] LABS: Basophils % (A) 0 %; Eosinophils # (A) 0.1 k/uL (0-0.7); Eosinophils % (A) 1 %; HCT 35.5 % (34.0-46.0); HGB 12.3 gm/dL (11.4-16.0); Lymphocytes # (A) 0.8 k/uL (1.0-4.8); Lymphocytes % (A) 6 %; MCH 30.4 pg (25.0-35.0); MCHC 34.7 g/dL (31.0-37.0); MCV 87.6 fL (80.0-100.0); Mean Platelet Volume 7.5; Monocytes # (A) 0.7 k/uL (0-1.0); Monocytes % (A) 5 %; Neutrophils # (A) 12.4 k/uL (1.3-7.7); Neutrophils % (A) 87 %; Platelet Count 223 k/uL (150-450); RBC 4.05 m/uL (3.80-5.40); RDW 11.8 % (11.5-15.5); WBC 14.2 k/uL (3.8-10.6)
[2020-12-28 21:46] LABS: Albumin 3.5 g/dL (3.5-5.0); Calcium 8.6 mg/dL (8.4-10.2); Potassium 3.6 mmol/L (3.5-5.1); Total Bilirubin 0.9 mg/dL (0.2-1.3); Total Protein 6.2 g/dL (6.3-8.2)
--- NOTE | 2020-12-28 22:01 | CT ---
EXAMINATION TYPE: CT abdomen pelvis wo con DATE OF EXAM: 12/28/2020 COMPARISON: 02/16/2020 HISTORY: flank pain CT DLP: 1014.4 mGycm Automated exposure control for dose reduction was used. Exam performed with no contrast. Lung bases are clear. There is no pleural effusion. Heart size is normal. There are multiple hepatic cysts. These measure up to 3.7 cm. Spleen is intact. Stomach is intact. There is no pancreatic mass. There is no adrenal mass. Kidneys are markedly enlarged with polycystic disease. There is no evidence of a solid renal mass. Bladder distends smoothly. There is no retroperitoneal adenopathy. There is n o inguinal hernia. There is no free fluid in the pelvis. Appendix appears normal. There is no mesenteric edema. There is no ascites or free air. There is no sign of a bowel obstructio n. Lumbar vertebra have normal alignment. Posterior elements are intact. There is no compression fractur e. The bony pelvis is intact. There is intact hip joints. There is no hip dysplasia. IMPRESSION: Polycystic disease as above. No change compared to old exam. No sign of acute abdomen and pelvis.
[2020-12-28 22:06] LABS: Amorphous Sediment,Urine Occasional /hpf; Appearance,Urine Cloudy (Clear); Bacteria,Urine Rare /hpf; Bilirubin,Urine Negative (Negative); Blood,Urine Small (Negative); Color,Urine Yellow; Glucose,Urine (UA) Negative (Negative); Ketones,Urine Negative (Negative); Leukocyte Esterase,Urine Moderate (Negative); Mucus,Urine Few /hpf; Nitrite,Urine Negative (Negative); PH, Urine 5.5 (5.0-8.0); Protein,Urine 1+ (Negative); RBC,Urine 6 /hpf (0-5); Specific Gravity,Urine 1.014 (1.001-1.035); Squamous Epithelial Cell,Urine 36 /hpf (0-4); Urobilinogen,Urine <2.0 mg/dL (<2.0); WBC,Urine 26 /hpf (0-5)
[2020-12-28 22:36] VITALS: BP 112/76; PULSE 78; RESP 16
[2020-12-28] MEDS ORDERED: cefTRIAXone IN SWFI 1,000 MG/10 ML SYRINGE IVP STA (22:47)
== END 2020-12-28 23:09 | disposition home or self-care (01) ==
LOC: EC 20:48
DX: N12 Tubulo-interstitial nephritis, not specified as acute or chronic (principal); M19.90 Unspecified osteoarthritis, unspecified site; Z87.442 Personal history of urinary calculi
CPT/HCPCS: 36415; 80053; 83605; 83690; 85025; 81001; 87086; 74176; 99284; 96365; 96375; 96361; J2405; J0696; J1885

== ENCOUNTER → 2021-12-10 | Outpatient (CLI) | payer OTHER ==
--- NOTE | 2021-12-12 12:33 | MM ---
Reason for exam: screening (asymptomatic). Last mammogram was performed 1 year and 1 month ago. History: Patient is postmenopausal. Family history of breast cancer in cousin and breast cancer in sister at age 56. Took hormonal contraceptives for 3 years beginning at age 45. Physical Findings: A clinical breast exam by your physician is recommended on an annual basis and results should be correlated with mammographic findings. MG Screening Mammo w CAD Bilateral CC, MLO, and XCCL view(s) were taken. Prior study comparison: November 14, 2020, bilateral MG screening mammo w CAD. October 18, 2019, bilateral MG screening mammo w CAD. The breast tissue is heterogeneously dense. This may lower the sensitivity of mammography. Focal asymmetry right breast is stable. No significant changes when compared with prior studies. ASSESSMENT: Benign, BI-RAD 2 RECOMMENDATION: Routine screening mammogram of both breasts in 1 year.
== END | disposition home or self-care (01) ==
LOC: RADMAMWWP 08:31
PROVIDERS: ATTEND Obstetrics & Gynecology
DX: Z12.31 Encounter for screening mammogram for malignant neoplasm of breast (principal); Z78.0 Asymptomatic menopausal state; Z80.3 Family history of malignant neoplasm of breast
CPT/HCPCS: 77067

== ENCOUNTER → 2021-12-28 | Outpatient (CLI) | payer OTHER ==
[2021-12-28 11:25] LABS: HCT 42.6 % (37.2-46.3); HGB 13.2 g/dL (12.0-15.0); MCH 28.4 pg (27.0-32.0); MCV 91.8 fL (80.0-97.0); Mean Platelet Volume 11.2 fL (9.5-12.2); NRBC Per 100 WBC 0 /100 WBCS (0.0-0.0); Platelet Count 259 X 10*3/uL (140-440); RBC 4.64 X 10*6/uL (4.10-5.20); RDW 13.2 % (11.5-14.5); WBC 7.48 X 10*3/uL (4.50-10.00)
[2021-12-28 11:54] LABS: ALT 22 U/L (8-44); AST 18 U/L (13-35); African American GFR (CKD) 58.5 (60.0-200.0); BUN/Creat Ratio 20.67 Ratio (12.00-20.00); Blood Urea Nitrogen 24.8 mg/dL (9.0-27.0); Calcium 9.4 mg/dL (8.7-10.3); Chloride 106 mmol/L (96-109); Chol/HDL Ratio 5.22 Ratio; Glucose 94 mg/dL (70-110); LDL Cholesterol,Calculated 179.9 mg/dL (0.0-131.0); Non-African American GFR(CKD) 50.5 (60.0-200.0); Potassium 4.4 mmol/L (3.5-5.5); Sodium 140 mmol/L (135-145)
== END | disposition home or self-care (01) ==
LOC: LABWHC1 07:57
PROVIDERS: ATTEND Family Medicine
DX: I10 Essential (primary) hypertension (principal); E78.00 Pure hypercholesterolemia, unspecified; M85.80 Other specified disorders of bone density and structure, unspecified site
CPT/HCPCS: 36415; 80048; 80061; 82306; 83036; 84450; 84460; 85027

== ENCOUNTER → 2022-12-31 | Outpatient (CLI) | payer OTHER ==
--- NOTE | 2022-12-31 10:34 | MM ---
Reason for Exam: Screening (asymptomatic). Last mammogram was performed 1 year(s) and 1 month(s) ago. Patient History: Menarche at age 12. First Full-Term at age 27. Postmenopausal. Patient has history of breast feeding. Hormonal Contraceptives for 3 years from age 45 until age 48. Maternal cousin had breast cancer. Sister had breast cancer, age 56. Risk Values: Theresa 5 year model risk: 2.5%. NCI Lifetime model risk: 14.9%. Prior Study Comparison: 10/18/2019 Bilateral Screening Mammogram, [facility]. 11/14/2020 Bilateral Screening Mammogram, [facility]. 12/10/2021 Bilateral Screening Mammogram, [facility]. Tissue Density: The breast tissue is heterogeneously dense. This may lower the sensitivity of mammography. Analyzed By CAD. Overall Assessment: Negative, BI-RAD 1 Management: Screening Mammogram of both breasts in 1 year. Electronically signed and approved by: Jean Castro M.D.
--- NOTE | 2022-12-31 11:29 | BD ---
EXAMINATION TYPE: Axial Bone Density DATE OF EXAM: 12/31/2022 CLINICAL HISTORY: 57 years year old Female. ICD-10 CODE: Z78.0 POST MENOPAUSAL WITHOUT HRT M85.88 OT HER DISORDER OF B Height: 63 Weight: 211 FRAX RISK QUESTIONS: Family History (Parent hip fracture): yes, father History of Fracture in Adulthood: no Secondary Osteoporosis: no Rheumatoid Arthritis: no RISK FACTORS HISTORY OF: Family History of Osteoporosis: yes, mother, father, sister, brother Active: yes Diet low in dairy products/other sources of calcium: yes Postmenopausal woman: yes, 48 Lost more than 2 inches in height since high school: no MEDICATIONS: Additional Medications: yes vit d, lisinopril, [place] EXAM MEASUREMENTS: Bone mineral densitometry was performed using the [employer] System. Bone mineral density as measured about the Lumbar spine is: ----- L1-L4(G/cm2): 0.982 T Score Values are as follows: ----- L1: -2.7 ----- L2: -1.9 ----- L3: -1.7 ----- L4: -0.7 ----- L1-L4: -1.7 Z Score Values are as follows: ----- L1: -2.6 ----- L2: -1.9 ----- L3: -1.7 ----- L4: -0.7 ----- L1-L4: -1.6 Bone mineral density has increased 3.6% since 10/18/2020 Bone mineral density about the R hip (g/cm2): 1.056 Bone mineral density about the L hip (g/cm2): 1.083 T Score values are as follows: -----R Neck: -0.2 -----L Neck: -0.6 -----R Total: 0.4 -----L Total: 0.6 Z Score values are as follows: -----R Neck: 0.3 -----L Neck: 0.0 -----R Total: 0.5 -----L Total: 0.7 Bone mineral density has decreased -0.2% since 10/18/2020 FRAX%s: The graph provided illustrates a 11.4% chance for a major osteoporotic fx and a 0.2% chance f or the hips probability for fx in 10 years time. IMPRESSION: Osteopenia (T Score between -2.5 and -1). There is slightly increased risk of fracture and the patient may be considered for treatment. Re-Screen 2-5 years. NOTE: T-SCORE=SD OF THE YOUNG ADULT MEAN.
== END | disposition home or self-care (01) ==
LOC: RADMAMWWP 07:35
PROVIDERS: ATTEND Obstetrics & Gynecology
DX: Z12.31 Encounter for screening mammogram for malignant neoplasm of breast (principal); M85.89 Other specified disorders of bone density and structure, multiple sites; Z78.0 Asymptomatic menopausal state; Z80.3 Family history of malignant neoplasm of breast
CPT/HCPCS: 77067; 77080